=== PATIENT | female | born 1935 | race Caucasian/White ===

== ENCOUNTER 2016-10-30 16:35 | Emergency (ER) | payer MEDICARE, BC ==
[~2016-10-30 16:35] MED LIST: Iopamidol 612 MG/ML 75 ML Bottle IV ONE; Sodium Chloride 0.9% 50 ML SDV IV ONE
[2016-10-30 16:47] VITALS: BP 134/76
[2016-10-30 17:31] LABS: CHLORIDE,CL 97 mmol/L (98-115); SODIUM,NA 140 mmol/L (136-145)
[2016-10-30] MEDS ORDERED: Morphine 4 MG/ML Syringe IVPUSH ONE (18:24)
[2016-10-30] MEDS ORDERED: Sodium Chloride 0.9% 1,000 ML IV ONE (18:24)
[2016-10-30] MEDS ORDERED: Ondansetron 4 MG/2 ML SDV IVPUSH ONE (18:24)
--- NOTE | 2016-10-30 18:24 | EDM.PDOC ---
<Arnoldo Garcia Laura - Last Filed: 10/30/16 19:15> ED HPI GENERAL MEDICAL PROBLEM - General Chief Complaint: Lower Extremity Injury/Pain Time Seen by Provider: 10/30/16 17:23 Source of Information: Reports: Patient, Family (daughter) History Limitations: Reports: No Limitations - History of Present Illness INITIAL COMMENTS - FREE TEXT/NARRATIVE: Patient brought to ER by daughter with right lateral hip pain. 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 She was supposed to have her left knee replaced today but cancelled that due to the vomiting. At her pre-op physical two weeks ago she found to have a sinus infection and took a course of Z-pack but she doesn't think that cleared it up. She hasn't noticed a fever at home but it is 99.5 in ER now. She has a slight cough that she thinks is due to her sinus drainage rather than anything in her lungs. She denies dysuria. She does have right flank pain but she thinks that is her hip. For the last 5 days she has been administering Lovenox shots in her abdomen bridging for warfarin/A Fib with her planned knee replacement. She says she has a hematoma on her abdomen from the Lovenox shots. She also has known hypokalemia and normally takes potassium 30meq in AM and 20 in pm, however for the past 5 days she hasn't taken them or some of her other medication. She normally drinks about 6 cups of water daily but not as much the last couple days. Treatments DRAWER LINER: Reports: Acetaminophen Right Hip Pain Score (Numeric/FACES): 10 - Related Data Allergies Allergy/AdvReac Type Severity Reaction Status Date / Time cat dander Allergy Cannot Verified 10/30/16 16:58 Remember cephalexin [From Keflex] Allergy Stomach Verified 10/30/16 16:58 Upset furosemide [From Lasix] Allergy Dizziness Verified 02/02/16 17:48 Penicillins Allergy Cannot Verified 02/02/16 17:47 Remember propoxyphene HCl Allergy Rash Verified 10/30/16 16:58 [From Darvon] propoxyphene napsylate Allergy Rash Verified 10/30/16 16:58 [From Darvocet-N 100] acetaminophen AdvReac Mild Cannot Verified 02/02/16 17:47 [From Darvocet-N 100] Remember ENVIRONMENTAL Allergy Cannot Uncoded 05/09/15 12:23 Remember Home Meds: Home Meds Acetaminophen [Tylenol Extra Strength] 1,000 mg PO Q6H PRN 04/29/13 [History] Levothyroxine [Synthroid] 100 mcg PO ACBRK 04/29/13 [History] Multivitamin [Multi-Vitamin Daily] 1 each PO DAILY 04/29/13 [History] Preston-3 Fatty Acids [Preston-3] 1,000 mg PO BID 04/29/13 [History] amLODIPine [Norvasc] 10 mg PO DAILY 04/29/13 [History] Bumetanide [Bumex] 1 tab PO BID 06/17/14 [History] Sertraline [Zoloft] 100 mg PO DAILY 02/14/15 [History] Triamterene/Hydrochlorothiazid [Triamterene-HCTZ 37.5-25 MG] 1 each PO DAILY [History] Gluc 2KCl/Chondr/Lavelle Hy/Hy Ac [Glucosamine & Chondroitin Cap] 1 each PO DAILY 02/02/16 [History] Rosuvastatin Calcium [Crestor] 5 mg PO DAILY 02/02/16 [History] Albuterol [IJD: Albuterol HFA] 2 puff INH Q4H PRN 10/30/16 [History] Diltiazem HCl [Cardizem Cd] 1 cap PO DAILY 10/30/16 [History] Gluc 2KCl/Chondr/Lavelle Hy/Hy Ac [Glucosamine & Chondroitin Cap] 2 cap PO DAILY@ 1800 10/30/16 [History] Lutein/Minerals/Vit A,C & E [Ocuvite] 1 tab PO DAILY 10/30/16 [History] Potassium Chloride [Klor-Con M20] 40 meq PO DAILY@1800 10/30/16 [History] Potassium Chloride [Klor-Con M20] 60 meq PO DAILY 10/30/16 [History] Pregabalin [Lyrica] 100 mg PO TID 10/30/16 [History] Past Medical History Cardiovascular History: Reports: Arrhythmia, Blood Clots/VTE/DVT, Hypertension Musculoskeletal History: Reports: Arthritis Neurological History: Reports: Neuropathy, Peripheral - Past Surgical History Musculoskeletal Surgical History: Reports: Other (See Below) Other Musculoskeletal Surgeries/Procedures:: Left ankle surgery Social & Family History - Tobacco Use Smoking Status *Q: Never Smoker Used Tobacco, but Quit: No Second Hand Smoke Exposure: Yes - Caffeine Use Caffeine Use: Reports: Coffee, Soda, Tea - Alcohol Use Days Per Week of Alcohol Use: 0 - Recreational Drug Use Recreational Drug Use: No Review of Systems - Review of Systems Review Of Systems: See Below Constitutional: Denies: Chills, Diaphoresis, Fever Eyes: Denies: Blurred Vision Ears: Denies: Dizziness Nose: Reports: Other (post nasal drainage) Mouth/Throat: Denies: Hoarse Voice, Difficulty Swallowing Respiratory: Denies: Shortness of Breath, Wheezing Cardiovascular: Reports: Edema (chronic but worse than usual since she hasn't been taking her furosemide for a few days). Denies: Chest Pain, Syncope GI/Abdominal: Reports: Nausea, Vomiting Genitourinary: Reports: Incontinence. Denies: Dysuria Musculoskeletal: Reports: Leg Pain (see HPI). Denies: Neck Pain, Shoulder Pain Skin: Reports: Bruising, Erythema. Denies: Cyanosis, Jaundice, Mottled, Pallor , Diaphoresis Neurological: Denies: Confusion, Dizziness, Headache, Seizure, Syncope, Trouble Speaking Psychiatric: Denies: Confusion ED EXAM, GENERAL - Physical Exam Exam: See Below Exam Limited By: No Limitations General Appearance: Alert, WD/WN, No Apparent Distress Eye Exam: Bilateral Eye: EOMI, Normal Inspection, PERRL Ears: Normal External Exam, Hearing Grossly Normal Nose: Normal Inspection, No Blood Throat/Mouth: Normal Lips, Normal Voice, No Airway Compromise Head: Atraumatic, Normocephalic Respiratory/Chest: No Respiratory Distress, Lungs Clear, Normal Breath Sounds, No Accessory Muscle Use Cardiovascular: No Murmur, Irregularly Irregular GI/Abdominal: Tender (there is a large area of ecchymosis, swelling, warmth and induration of left lower abdomen/pannus. This is tender to palpation also. Also tender in RUQ and flank.) Back Exam: CVA Tenderness (R). No: CVA Tenderness (L) Extremities: Pedal Edema (4+ bilat) Neurological: Alert, Oriented, Normal Cognition, No Motor/Sensory Deficits Psychiatric: Normal Affect, Normal Mood Skin Exam: Warm, Dry, Intact, Ecchymosis (large on abdomen and also on bilat arms), Increased Warmth (abdomen) Course - Vital Signs Last Recorded V/S: Last Vital Signs Temp 37.5 C 10/30/16 16:44 Pulse 87 10/30/16 16:44 Resp 16 10/30/16 16:44 BP 134/76 10/30/16 16:44 Pulse Ox 97 10/30/16 16:44 - Orders/Labs/Meds Orders: Active Orders 24 hr Category Date Time Status Abdomen Pelvis w Cont [CT] Stat Exams 10/30/16 18:48 Ordered Chest 2V [CR] Stat Exams 10/30/16 16:54 Taken Hip Min 2V or 3V w Pelvis Rt [CR] Stat Exams 10/30/16 16:54 Taken CULTURE BLOOD [BC] Stat Lab 10/30/16 18:10 Received CULTURE BLOOD [BC] Stat Lab 10/30/16 18:35 Received CULTURE URINE [RM] Stat Lab 10/30/16 18:00 Received Levofloxacin/Dextrose 5%-Water [Levaquin in D5W 250 MG/ Med 10/30/16 19:09 Active 50 ML] 250 mg Premix Bag 1 bag IV ONETIME Levofloxacin/Dextrose 5%-Water [Levaquin in D5W 500 MG/ Med 10/30/16 19:10 Active 100 ML] 500 mg Premix Bag 1 bag IV ONETIME Potassium Bicarb/Potassium Chl [Potassium Chloride, Med 10/30/16 19:15 Active Effervescent] 50 meq PO DAILY Vancomycin 1 gm Med 10/30/16 19:09 Active Sodium Chloride 0.9% [Normal Saline] 250 ml IV ONETIME Blood Culture x2 Reflex Set [OM.PC] Stat Oth 10/30/16 17:47 Ordered Medication Orders Levofloxacin/Dextrose 250 mg/ (Premix) 50 mls @ 50 mls/hr IV ONETIME ONE Stop: 10/30/16 20:08 Levofloxacin/Dextrose 500 mg/ (Premix) 100 mls @ 100 mls/hr IV ONETIME ONE Stop: 10/30/16 20:09 Last Admin: 10/30/16 19:54 Dose: 100 mls/hr Vancomycin HCl 1 gm/ Sodium (Chloride) 250 mls @ 167 mls/hr IV ONETIME ONE Stop: 10/30/16 20:38 Potassium Bicarb/Potassium Chloride (Potassium Chloride, Effervescent) 50 meq PO DAILY FAROOQ Last Admin: 10/30/16 19:53 Dose: 50 meq Labs: Laboratory Tests 10/30/16 10/30/16 10/30/16 Range/Units 17:00 17:00 17:00 WBC 19.2 H (5.0-10.0) 10^3/uL RBC 4.05 (3.80-5.50) 10^6/uL Hgb 12.6 (12.0-16.0) g/dL Hct 36.9 L (37.0-47.0) % MCV 91.1 (82.0-92.0) fL MCH 31.2 H (27.0-31.0) pg MCHC 34.2 (32.0-36.0) g/dL RDW 12.9 (11.5-14.5) % Plt Count 274 (150-300) 10^3/uL MPV 7.0 L (7.4-10.4) fL Neut % (Auto) 77.0 H (50.0-70.0) % Lymph % (Auto) 10.1 L (20.0-40.0) % [place] % (Auto) 12.6 H (2.0-8.0) % Eos % (Auto) 0.1 L (1.0-3.0) % Baso % (Auto) 0.2 (0.0-1.0) % Neut # (Auto) 14.9 H (2.5-7.0) 10^3/uL Lymph # (Auto) 1.9 (1.0-4.0) 10^3/uL [place] # (Auto) 2.4 H (0.1-0.8) 10^3/uL Eos # (Auto) 0.0 L (0.1-0.3) 10^3/uL Baso # (Auto) 0.0 (0.0-0.1) 10^3/uL PT (8.9-11.4) SEC INR (0.9-1.1) APTT (20.8-31.2) SEC Sodium 140 (136-145) mmol/L Potassium 2.6 L (3.3-5.3) mmol/L Chloride 97 L (98-115) mmol/L Carbon Dioxide 31.0 (21.0-32.0) mmol/L BUN 13 (6-25) mg/dL Creatinine 0.59 (0.51-1.17) mg/dL Est Cr Clr Drug Dosing 55.47 mL/min Estimated GFR (MDRD) > 60 mL/min Glucose 138 H (70-110) mg/dL Lactic Acid (0.4-2.0) mmol/L Calcium 9.5 (8.7-10.3) mg/dL C-Reactive Protein 21.3 H (0.0-0.9) mg/dL Specimen Type Urine Color (YELLOW) Urine Appearance (CLEAR) Urine pH (5.0-9.0) Ur Specific [place] (1.005-1.030) Urine Protein (NEGATIVE) mg/dL Urine Glucose (UA) (NEGATIVE) mg/dL Urine Ketones (NEGATIVE) mg/dL Urine Occult Blood (NEGATIVE) Urine Nitrite (NEGATIVE) Urine Bilirubin (NEGATIVE) Urine Urobilinogen (0.2-1.0) E.U./dL Ur Leukocyte Esterase (NEGATIVE) Urine RBC /HPF Urine WBC /HPF Ur Epithelial Cells /LPF Urine Bacteria (NONE TO FEW) /HPF 10/30/16 10/30/16 10/30/16 Range/Units 17:00 17:00 18:00 WBC (5.0-10.0) 10^3/uL RBC (3.80-5.50) 10^6/uL Hgb (12.0-16.0) g/dL Hct (37.0-47.0) % MCV (82.0-92.0) fL MCH (27.0-31.0) pg MCHC (32.0-36.0) g/dL RDW (11.5-14.5) % Plt Count (150-300) 10^3/uL MPV (7.4-10.4) fL Neut % (Auto) (50.0-70.0) % Lymph % (Auto) (20.0-40.0) % [place] % (Auto) (2.0-8.0) % Eos % (Auto) (1.0-3.0) % Baso % (Auto) (0.0-1.0) % Neut # (Auto) (2.5-7.0) 10^3/uL Lymph # (Auto) (1.0-4.0) 10^3/uL [place] # (Auto) (0.1-0.8) 10^3/uL Eos # (Auto) (0.1-0.3) 10^3/uL Baso # (Auto) (0.0-0.1) 10^3/uL PT 11.3 (8.9-11.4) SEC INR 1.1 (0.9-1.1) APTT 26.6 (20.8-31.2) SEC Sodium (136-145) mmol/L Potassium (3.3-5.3) mmol/L Chloride (98-115) mmol/L Carbon Dioxide (21.0-32.0) mmol/L BUN (6-25) mg/dL Creatinine (0.51-1.17) mg/dL Est Cr Clr Drug Dosing mL/min Estimated GFR (MDRD) mL/min Glucose (70-110) mg/dL Lactic Acid (0.4-2.0) mmol/L Calcium (8.7-10.3) mg/dL C-Reactive Protein (0.0-0.9) mg/dL Specimen Type Urinvoid Urine Color Yellow (YELLOW) Urine Appearance Clear (CLEAR) Urine pH 6.5 (5.0-9.0) Ur Specific [place] 1.015 (1.005-1.030) Urine Protein Negative (NEGATIVE) mg/dL Urine Glucose (UA) Negative (NEGATIVE) mg/dL Urine Ketones Negative (NEGATIVE) mg/dL Urine Occult Blood Negative (NEGATIVE) Urine Nitrite Negative (NEGATIVE) Urine Bilirubin Negative (NEGATIVE) Urine Urobilinogen 0.2 (0.2-1.0) E.U./dL Ur Leukocyte Esterase Negative (NEGATIVE) Urine RBC 0-5 /HPF Urine WBC 0-5 /HPF Ur Epithelial Cells Moderate H /LPF Urine Bacteria Moderate H (NONE TO FEW) /HPF 10/30/16 Range/Units 18:10 WBC (5.0-10.0) 10^3/uL RBC (3.80-5.50) 10^6/uL Hgb (12.0-16.0) g/dL Hct (37.0-47.0) % MCV (82.0-92.0) fL MCH (27.0-31.0) pg MCHC (32.0-36.0) g/dL RDW (11.5-14.5) % Plt Count (150-300) 10^3/uL MPV (7.4-10.4) fL Neut % (Auto) (50.0-70.0) % Lymph % (Auto) (20.0-40.0) % [place] % (Auto) (2.0-8.0) % Eos % (Auto) (1.0-3.0) % Baso % (Auto) (0.0-1.0) % Neut # (Auto) (2.5-7.0) 10^3/uL Lymph # (Auto) (1.0-4.0) 10^3/uL [place] # (Auto) (0.1-0.8) 10^3/uL Eos # (Auto) (0.1-0.3) 10^3/uL Baso # (Auto) (0.0-0.1) 10^3/uL PT (8.9-11.4) SEC INR (0.9-1.1) APTT (20.8-31.2) SEC Sodium (136-145) mmol/L Potassium (3.3-5.3) mmol/L Chloride (98-115) mmol/L Carbon Dioxide (21.0-32.0) mmol/L BUN (6-25) mg/dL Creatinine (0.51-1.17) mg/dL Est Cr Clr Drug Dosing mL/min Estimated GFR (MDRD) mL/min Glucose (70-110) mg/dL Lactic Acid 2.6 H (0.4-2.0) mmol/L Calcium (8.7-10.3) mg/dL C-Reactive Protein (0.0-0.9) mg/dL Specimen Type Urine Color (YELLOW) Urine Appearance (CLEAR) Urine pH (5.0-9.0) Ur Specific [place] (1.005-1.030) Urine Protein (NEGATIVE) mg/dL Urine Glucose (UA) (NEGATIVE) mg/dL Urine Ketones (NEGATIVE) mg/dL Urine Occult Blood (NEGATIVE) Urine Nitrite (NEGATIVE) Urine Bilirubin (NEGATIVE) Urine Urobilinogen (0.2-1.0) E.U./dL Ur Leukocyte Esterase (NEGATIVE) Urine RBC /HPF Urine WBC /HPF Ur Epithelial Cells /LPF Urine Bacteria (NONE TO FEW) /HPF Meds: Medications Generic Name Dose Route Start Last Admin Trade Name Freq PRN Reason Stop Dose Admin Levofloxacin/Dextrose 250 mg/ 50 mls @ 50 mls/hr 10/30/16 19:09 Premix IV 10/30/16 20:08 ONETIME ONE Levofloxacin/Dextrose 500 mg/ 100 mls @ 100 mls/hr 10/30/16 19:10 10/30/16 19 :54 Premix IV 10/30/16 20:09 100 mls/hr ONETIME ONE Administration Vancomycin HCl 1 gm/ Sodium 250 mls @ 167 mls/hr 10/30/16 19:09 Chloride IV 10/30/16 20:38 ONETIME ONE Potassium Bicarb/Potassium Chloride 50 meq 10/30/16 19:15 10/30/16 19:53 Potassium Chloride, Effervescent PO 50 meq DAILY FAROOQ Administration Discontinued Medications Generic Name Dose Route Start Last Admin Trade Name Freq PRN Reason Stop Dose Admin Sodium Chloride 1,000 mls @ 999 mls/hr 10/30/16 18:24 10/30/16 18:52 Normal Saline IV 10/30/16 19:24 999 mls/hr .BOLUS ONE Administration Morphine Sulfate 4 mg 10/30/16 18:24 10/30/16 18:55 Morphine IVPUSH 10/30/16 18:25 4 mg ONETIME ONE Administration Ondansetron HCl 4 mg 10/30/16 18:24 10/30/16 18:52 Zofran IVPUSH 10/30/16 18:25 4 mg ONETIME ONE Administration - Re-Assessments/Exams Free Text/Narrative Re-Assessment/Exam: 10/30/16 19:03 WBC, CRP, lactic acid all elevated. Xrays of chest, pelvis and hip all okay, confirmed by radiologist. Discussed findings with patient and her daughter. Started IV fluids and zofran, tavo blood cultures, ordered CT and will start antibiotics. Discussed with William who will be taking over care of this patient. Discussed preliminarily that she will likely be transferred to [facility] which is okay with her and her daughter. Departure - Departure Disposition: DC/Tfer to [facility] 02 Clinical Impression: Hypokalemia, Neutrophilic leukocytosis, Abdominal wall abscess - Discharge Information Referrals: PCP,Not In Area [Primary Care Provider] - Forms: ED Department Discharge, Interfacility Transfer RAMAKRISHNA <William Miles - Last Filed: 10/30/16 20:19> Course - Radiology Interpretation Free Text/Narrative:: CT abd/pelvis- 10x7.6x7.0 abdominal wall mass- hematoma vs abscess Departure - Departure Time of Disposition: 20:17 - Assessment/Plan Assessment:: 1. abdominal wall mass 2. leukocytosis 3. hypokalemia 4. elevated lactic acid Plan: 1. transfer to [facility] for further evaluation and treatment 2. supportive care
[2016-10-30] MEDS ORDERED: Levofloxacin/Dextrose 5%-Water 250 MG in Premix Bag 1 BAG IV ONE (19:09)
[2016-10-30] MEDS ORDERED: Levofloxacin/Dextrose 5%-Water 500 MG in Premix Bag 1 BAG IV ONE (19:10)
[2016-10-30] MEDS ORDERED: Potassium Bicarbonate/Potassium Chloride 25 MEQ Tab.Eff PO SCH (19:15)
[2016-10-30] MEDS ORDERED: Acetaminophen 325 MG Tab ONE (20:52)
[2016-10-30] MEDS ORDERED: Acetaminophen 325 MG Tab PO ONE (21:00)
[2016-10-31] MEDS ORDERED: Iopamidol 612 MG/ML 75 ML Bottle IV ONE (08:05)
[2016-10-31] MEDS ORDERED: Sodium Chloride 0.9% 50 ML SDV FLUSH SCH (08:15)
== END 2016-10-30 21:00 ==
LOC: KA.ED 16:35
DX: L02.211 Cutaneous abscess of abdominal wall (principal); E87.6 Hypokalemia; D72.828 Other elevated white blood cell count; I10 Essential (primary) hypertension; M19.90 Unspecified osteoarthritis, unspecified site; Z88.8 Allergy status to other drugs, medicaments and biological substances; Z88.0 Allergy status to penicillin; Z91.048 Other nonmedicinal substance allergy status; Z79.899 Other long term (current) drug therapy; Z91.09 Other allergy status, other than to drugs and biological substances
CPT/HCPCS: 36415; 71020; 73502; 74177; 80048; 81001; 83605; 85025; 85610; 85730; 86140; 87040; 87086; 96361; 96365; 96375; 99285; A9270; J1956; J2270; J2405; J7030; Q9967

== ENCOUNTER 2016-11-19 14:55 | Inpatient (IN) | payer MEDICARE, BC ==
[2016-11-19] MEDS ORDERED: Albuterol HFA 18 Gm Inhaler INH PRN (17:49)
[2016-11-19] MEDS ORDERED: Albuterol/Ipratropium 3.0-0.5 MG/3 ML Neb Soln NEB PRN (17:49)
[2016-11-19] MEDS ORDERED: 50% Dextrose in Water 50 ML Syringe IVPUSH PRN (17:49)
[2016-11-19] MEDS ORDERED: Non-Formulary Medication 1 Each (Gluc 2kcl/Chondr/Coll Hy/Hy Ac [Glucosamine & Chondroitin PO SCH (18:00)
[2016-11-19] MEDS ORDERED: Warfarin 5 MG Tab PO ONE (18:00)
[2016-11-19] MEDS: Potassium Chloride 20 MEQ Tab.ER PO SCH (19:21)
[2016-11-19] MEDS: Bumetanide 1 MG Tab PO SCH (19:34)
[2016-11-19] MEDS: Carvedilol 6.25 MG Tab PO SCH (19:34)
[2016-11-19] MEDS: Chondroitin/Glucosamine Cap PO SCH (19:35)
[2016-11-19] MEDS: Hydrocortisone 2.5% Crm 30 GM Tube TOP SCH (20:52)
[2016-11-19] MEDS: Nystatin Topical Powder 15 GM Bottle TOP SCH (20:53)
[2016-11-19] MEDS: Pregabalin 25 MG Cap PO SCH (20:54)
[2016-11-19] MEDS: Multivitamins with Minerals/Iron/Folic Acid/Lycopene Tab PO SCH (20:54)
[2016-11-19] MEDS: Rosuvastatin 10 MG Tab PO SCH (20:54)
[2016-11-19] MEDS: Fish Oil/Omega-3 Fatty Acids 1 Gm Cap PO SCH (20:54)
[2016-11-19] MEDS ORDERED: atorvaSTATin 40 MG Tab PO SCH (21:00)
[2016-11-20] MEDS: Levothyroxine 100 MCG Tab PO SCH (07:02)
[2016-11-20 07:39] LABS: CHLORIDE,CL 102 mmol/L (98-115); SODIUM,NA 141 mmol/L (136-145)
[2016-11-20] MEDS ORDERED: Non-Formulary Medication 1 Each (Amlodipine [Norvasc] 10 MG) PO SCH (09:00)
[2016-11-20] MEDS ORDERED: Hydrochlorothiazide/Triamterene 25-37.5 Tab PO SCH (09:00)
[2016-11-20] MEDS: Aspirin 81 MG Tab.EC PO SCH (09:08)
[2016-11-20] MEDS: Chondroitin/Glucosamine Cap PO SCH (09:09)
[2016-11-20] MEDS: Loratadine 10 MG Tab PO SCH (09:09)
[2016-11-20] MEDS: Lutein/Minerals/Vitamins A, C & E Tab PO SCH (09:09)
[2016-11-20] MEDS: Fish Oil/Omega-3 Fatty Acids 1 Gm Cap PO SCH ×2 (09:09→21:35)
[2016-11-20] MEDS: Pregabalin 25 MG Cap PO SCH ×3 (09:09→21:35)
[2016-11-20] MEDS: Clopidogrel 75 MG Tab PO SCH (09:10)
[2016-11-20] MEDS: Sertraline 50 MG Tab PO SCH (09:10)
[2016-11-20] MEDS: Bumetanide 1 MG Tab PO SCH ×2 (09:22→17:18)
[2016-11-20] MEDS: Lisinopril 5 MG Tab PO SCH (09:22)
[2016-11-20] MEDS: Diltiazem 120 MG Cap.CD PO SCH (09:28)
[2016-11-20] MEDS: Carvedilol 6.25 MG Tab PO SCH ×2 (09:49→17:19)
[2016-11-20] MEDS: Nystatin Topical Powder 15 GM Bottle TOP SCH ×3 (09:55→21:35)
[2016-11-20] MEDS ORDERED: Lidocaine 2% 100 MG/5 ML Syringe IVPUSH PRN (09:56)
[2016-11-20] MEDS ORDERED: Atropine 0.1 MG/ML 10 ML Syringe IVPUSH PRN (09:56)
[2016-11-20] MEDS ORDERED: EPINEPHrine 1:10,000 1 MG/10 ML Syringe IVPUSH PRN (09:56)
[2016-11-20] MEDS ORDERED: Nitroglycerin 0.4 MG Tab.SL SL PRN (09:56)
[2016-11-20] MEDS: Hydrocortisone 2.5% Crm 30 GM Tube TOP SCH ×2 (09:56→21:35)
[2016-11-20] MEDS: Acetaminophen 325 MG Tab PO PRN (10:09)
[2016-11-20] MEDS: Potassium Chloride 20 MEQ Tab.ER PO SCH ×2 (10:09→17:19)
[2016-11-20] MEDS: Warfarin 5 MG Tab PO SCH (17:19)
[2016-11-20] MEDS: Rosuvastatin 10 MG Tab PO SCH (21:34)
[2016-11-20] MEDS: Multivitamins with Minerals/Iron/Folic Acid/Lycopene Tab PO SCH (21:34)
[2016-11-21] MEDS: Levothyroxine 100 MCG Tab PO SCH (06:08)
--- NOTE | 2016-11-21 07:41 | HP ---
This is for swing bed admission. This is an 80-year-old female formally from [place], [place], currently residing in [place]. CHIEF COMPLAINT: Deconditioning and weakness due to extended hospitalization. HISTORY OF PRESENT ILLNESS: This is an 80-year-old, pleasant female who is being admitted to [facility] Swing Bed for weakness and deconditioning following an extended illness. The history is obtained from hospital records from [facility] in [place] as well as from the patient and her daughter, who is present during the interview today. The patient was scheduled for a knee surgery on 10/30/2016. She has a past medical history of atrial fibrillation and it was being bridged for four days with Lovenox. She was seen in the emergency room at [facility] for a hematoma on the left side of her abdomen. She was seen in the emergency room, she reported just not feeling well. When she was seen in the emergency room apparently decompensated from a respiratory standpoint, was intubated and sent to [place]. She was cared for in the intensive care unit and left on the ventilator for approximately 72 hours. She was extubated without complication. She was found to be anemic and did receive a total of 3 units of packed RBCs during her hospitalization. She underwent a cardiac catheterization on 11/09/2016, which showed severe proximal left anterior descending artery stenosis and moderate ostial RCA stenosis. She had a stent of the proximal LAD performed that day. I should add that the reason for the intubation was acute on chronic congestive heart failure secondary to chronic atrial fibrillation. Her most recent echocardiogram was on 11/12/2016, which showed a left ventricular ejection fraction of 45 to 50%, with a normal left ventricle size. There was mild global hypokinesis of the left ventricle. Right ventricle showed normal right ventricular systolic function with right ventricular enlargement. Left atrium and right atrium, both quantitatively enlarged. Aortic valve was moderately sclerotic with no insufficiency. Mitral valve had showed moderate mitral valve annular calcifications with moderate mitral regurgitation. Tricuspid valve did not visualize well, but was found to have moderate tricuspid regurgitation. Pulmonic valve was not well visualized, but grossly normal with possibly a trace or physiologic pulmonic regurgitation. There was no pericardial effusion. She is being admitted to the swing bed for deconditioning and weakness following this extended illness and will receive physical therapy and have cardiac rehab after discharge. Summary of working problems while hospitalized at [facility] included acute hypoxic respiratory failure, which was resolved; newly diagnosed cardiomyopathy with acute systolic and diastolic CHF exacerbation, euvolemic on Bumex. She is on aspirin and Plavix per Cardiology; left anterior abdominal wall hematoma with mild improvement with a high risk of rebleed as she is on triple anticoagulation with aspirin, Plavix, and Coumadin; right retroperitoneal hematoma. CAT scan shows resolution from 13 cm to 4 cm; acute on chronic blood loss anemia stable after 3 units of packed RBCs; severe left knee osteoarthritis with previous plan for total knee arthroplasty, this will be postponed to outpatient management and intervention once she has improved. PAST MEDICAL HISTORY: 1. She has a history of hypothyroidism for which she is taking thyroid replacement. 2. She has a history of atrial fibrillation for which she is on long-term anticoagulation therapy. 3. She has a history of coronary artery disease with recent coronary artery stenting and is on Plavix and aspirin, in addition to the Coumadin, she is taking for atrial fibrillation. 4. She has a history of hypertension for which she is taking diltiazem as well as lisinopril. She is also taking Coreg. 5. She has a history of hypercholesterolemia for which she is taking rosuvastatin. 6. She has a history of peripheral neuropathy, not diabetic related and is taking pregabalin. 7. She has hypokalemia for which she is taking potassium chloride. 8. She has a history of congestive heart failure for which she is taking a potassium supplement. 9. She has a history of depression for which she is taking sertraline. PAST SURGICAL HISTORY: Includes a left ankle fracture with open reduction and internal fixation in 1995, tubal ligation, hysterectomy with BSO, right carpal tunnel decompression, cardiac stenting recently. According to her daughter, she was scheduled for cardiac ablation, however, was found to have a thrombus in her heart. MEDICATIONS: See above. She does have p.r.n. DuoNeb treatments for shortness of breath and wheezing. ALLERGIES: PCN; propoxyphene; cat dander; cephalexin. She has a history of seasonal allergies for which she is taking loratadine. FAMILY HISTORY: Her mom at age 56 of ovarian cancer. Her dad at age 61 of a CVA. Her brother has hypertension and her sister as an infant of whooping cough. SOCIAL HISTORY: Her on 07/27/2016. Since around [place], she was living independently in [place], [place]. She has since moved to a town home in [facility]. She has five living children, four of which live in the immediate area and a daughter that lives in [place]. Her main care provider in her family is Denia Mckeon. REVIEW OF SYSTEMS: GENERAL: The patient denies any fever, she has had some weight loss during the hospitalization. HEENT: She complains of a mild headache due to sinus pressure. She denies any visual changes. She did have some dysphagia and some swallowing difficulty in the intensive care unit requiring feeding tubes, however, this has resolved with the most recent swallow study being normal allowing for mechanical soft heart healthy diet 2 g sodium. CARDIAC: She denies any chest pain. She reports some palpitations when she is resting at night. She feels that her heart is flipping, this may be secondary to her AFib. RESPIRATORY: She does feel short of breath. No dyspnea and no orthopnea. She does have a cough with production of just clear sputum. ABDOMEN: No abdominal pain. No nausea, vomiting. She does have occasional diarrhea recently. No constipation. GENITOURINARY: No urinary complaints. No dysuria, hematuria, or urinary frequency. MUSCULOSKELETAL: She does have chronic left knee pain with severe osteoarthritis, requiring arthroplasty as soon as she is discharged from the hospital and recovered. ENDOCRINE: She denies any heat or cold intolerance. No polydipsia, polyuria, or polyphagia. NEUROLOGIC: She does have peripheral neuropathy not related to diabetes mellitus and is taking Lyrica. She denies any syncope or dizziness. PHYSICAL EXAMINATION: VITAL SIGNS: Her temp is 97.9, pulse is 58, respirations 18, blood pressure 108/58, O2 saturation is 96%, this is on room air. SKIN: Pale, somewhat dusky, warm, dry to touch. HEENT: Normocephalic. Faces are symmetrical. External ear canals are clear. Tympanic membranes are pearly bowie. Eyes, PERRLA. Extraocular movements are intact. Visual cabrera are full. Nasal mucosa is pink and moist. There is no erythema or exudate in the posterior pharynx. NECK: Supple. There is no cervical lymphadenopathy. No jugular vein distention. No carotid bruits. CARDIAC: Reveals S1, S2 to be normal. Rate and rhythm are irregularly irregular. There is a 3/6 systolic murmur. LUNGS: Clear. There are no rales, wheezes, or rhonchi auscultated. ABDOMEN: Soft. She does have hematoma on the left side of the abdomen, which is marked, appears to be resolving. Bowel sounds are present in all four quadrants. There is mild pedal edema, non-pitting. NEUROLOGICAL: She is alert and oriented to time, place, person, and self and is a good historian. Cranial nerves 2 through 12 are intact. Sensory motor and cerebellar function are deferred at this time. IMPRESSION: 1. Weakness and deconditioning following an extended hospital stay including a significant intensive care stay, she will be set up for physical therapy and later for cardiac rehab. 2. Acute hypoxic respiratory failure. This has resolved and improving significantly. This was most likely secondary to acute on chronic diastolic congestive heart failure exacerbation which seems to be stable on Bumex. 3. Acute on chronic diastolic dysfunction. 4. Left anterior abdominal wall hematoma that appears to be improving apparently. 5. There is a right retroperitoneal hematoma, which also appears to be improving. 6. Cardiomyopathy and history of atrial fibrillation. Continue triple anticoagulation. 7. Anemia. We will assess CBC, CMP, as well as a BMP and INR in the morning. 8. Severe left knee osteoarthritis. Plan for outpatient total knee arthroplasty. 9. Moderate mitral regurgitation found on echocardiogram, appears to be stable. 10.Hypothyroidism, on thyroid replacement. 11.Hypertension, continue antihypertensive regimen. 12.Coronary artery disease, status post stenting, stable, without chest pain. 13.Peripheral neuropathy not related to diabetes, continue Lyrica. If you have any questions, let me know. /[id number]/MODL MTDD
[2016-11-21 07:42] LABS: CHLORIDE,CL 105 mmol/L (98-115); SODIUM,NA 140 mmol/L (136-145)
[2016-11-21] MEDS: Loratadine 10 MG Tab PO SCH (08:35)
[2016-11-21] MEDS: Potassium Chloride 20 MEQ Tab.ER PO SCH ×2 (08:35→17:58)
[2016-11-21] MEDS: Aspirin 81 MG Tab.EC PO SCH (08:35)
[2016-11-21] MEDS: Bumetanide 1 MG Tab PO SCH ×2 (08:36→17:56)
[2016-11-21] MEDS: Clopidogrel 75 MG Tab PO SCH (08:36)
[2016-11-21] MEDS: Lutein/Minerals/Vitamins A, C & E Tab PO SCH (08:36)
[2016-11-21] MEDS: Sertraline 50 MG Tab PO SCH (08:36)
[2016-11-21] MEDS: Fish Oil/Omega-3 Fatty Acids 1 Gm Cap PO SCH ×2 (08:37→21:21)
[2016-11-21] MEDS: Chondroitin/Glucosamine Cap PO SCH (08:37)
[2016-11-21] MEDS: Pregabalin 25 MG Cap PO SCH ×3 (08:37→21:22)
[2016-11-21] MEDS: Carvedilol 6.25 MG Tab PO SCH ×2 (08:41→17:57)
[2016-11-21] MEDS: Lisinopril 5 MG Tab PO SCH (08:41)
[2016-11-21] MEDS: Hydrocortisone 2.5% Crm 30 GM Tube TOP SCH ×2 (08:42→21:20)
[2016-11-21] MEDS: Nystatin Topical Powder 15 GM Bottle TOP SCH ×3 (08:43→21:21)
[2016-11-21] MEDS: Diltiazem 120 MG Cap.CD PO SCH (08:43)
--- NOTE | 2016-11-21 09:00 | PCM.PN ---
- General Info Date of Service: 11/21/16 Admission Dx/Problem (Free Text): Deconditioning - Review of Systems Systems Review Comment:: Kotrney is seen today on swingbed rounds. She was admitted 11/19/16 due to deconditioning after a hospital stay for acute CHF exacerbation requiring intubation in the setting of having initially been evaluated for a abdominal wall hematoma. She states that she was not taking her medications as prescribed as her had a few months prior and she admits she was depressed but she no longer feels depressed. She previously lived in [place], [place] and recently moved to [place] to be closer to her family. She was supposed to have a knee replacement done but with her hospitalization and respiratory distress that was put on hold. She was actually on the enoxaparin as a bridge with her warfarin in anticipation of the knee replacement. 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 She also states that she had a cardiac stent placed. She reports she is feeling well. She is asking when she can go home. Nursing notes her BP and pulse have been low. She is on cardizem, coreg and prinivil. - Patient Data Vitals - most recent: Last Vital Signs Temp 96.7 F 11/21/16 06:23 Pulse 55 L 11/21/16 08:41 Resp 20 11/21/16 06:23 BP 117/55 L 11/21/16 08:41 Pulse Ox 93 L 11/21/16 06:55 Weight - most recent: 174 lb 3 oz I&O - last 24 hours: Intake & Output 11/20/16 11/21/16 11/21/16 22:59 06:59 14:59 Intake Total 1100 350 Output Total 1100 750 Balance 0 -400 Lab Results last 24 hrs: Laboratory Results - last 24 hr 11/20/16 11/21/16 11/21/16 Range/Units 07:05 07:10 07:10 PT 23.5 H (8.9-11.4) SEC INR 2.2 H (0.9-1.1) Sodium 140 (136-145) mmol/L Potassium 4.2 (3.3-5.3) mmol/L Chloride 105 (98-115) mmol/L Carbon Dioxide 32.7 H (21.0-32.0) mmol/L BUN 11 (6-25) mg/dL Creatinine 0.54 (0.51-1.17) mg/dL Est Cr Clr Drug Dosing 63.53 mL/min Estimated GFR (MDRD) > 60 mL/min Glucose 89 (70-110) mg/dL Calcium 8.9 (8.7-10.3) mg/dL B-Natriuretic Peptide 301 H (0-100) pg/mL Med Orders - Current: Current Medications Acetaminophen (Tylenol) 650 mg PO Q6H PRN PRN Reason: Pain Last Admin: 11/20/16 10:09 Dose: 650 mg Albuterol (Ventolin Hfa) 0 gm INH Q4H PRN PRN Reason: Shortness of Breath Albuterol/Ipratropium (Duoneb 3.0-0.5 Mg/3 Ml) 3 ml NEB Q4HRRT PRN PRN Reason: Shortness of Breath Aspirin (Halfprin) 81 mg PO BRK [facility] Last Admin: 11/21/16 08:35 Dose: 81 mg Atropine Sulfate (Atropine 0.1 Mg/Ml) 0 mg IVPUSH ASDIRECTED PRN PRN Reason: Heart Bumetanide (Bumex) 1 mg PO BIDDIURETIC [facility] Last Admin: 11/21/16 08:36 Dose: 1 mg Carvedilol (Coreg) 3.125 mg PO BIDMEALS [facility] Last Admin: 11/21/16 08:41 Dose: 3.125 mg Clopidogrel Bisulfate (Plavix) 75 mg PO DAILY [facility] Last Admin: 11/21/16 08:36 Dose: 75 mg Epinephrine HCl (Epinephrine 1:10,000) 1 mg IVPUSH ASDIRECTED PRN PRN Reason: Heart Fish Oil (Fish Oil) 1 gm PO BID [facility] Last Admin: 11/21/16 08:37 Dose: 1 gm Glucosamine/Chondroitin (Glucosamine-Chondroitin 500-400 Capsule) 2 cap PO DAILY [facility] Last Admin: 11/21/16 08:37 Dose: 2 cap Hydrocortisone (Proctozone-Hc 2.5% Crm) 0 gm TOP BID [facility] Last Admin: 11/21/16 08:42 Dose: 1 applic Levothyroxine Sodium (Synthroid) 100 mcg PO ACBRK [facility] Last Admin: 11/21/16 06:08 Dose: 100 mcg Lidocaine HCl (Xylocaine 2%) 0 mg IVPUSH ASDIRECTED PRN PRN Reason: Heart Lisinopril (Prinivil) 2.5 mg PO DAILY [facility] Last Admin: 11/21/16 08:41 Dose: 2.5 mg Loratadine (Claritin) 10 mg PO DAILY [facility] Last Admin: 11/21/16 08:35 Dose: 10 mg Multivitamins/Minerals (Centrum) 1 tab PO BEDTIME [facility] Last Admin: 11/20/16 21:34 Dose: 1 tab Multivitamins/Minerals (Ocuvite) 1 each PO DAILY [facility] Last Admin: 11/21/16 08:36 Dose: 1 each Nitroglycerin (Nitrostat) 0.4 mg SL ASDIRECTED PRN PRN Reason: Heart Warfarin Pharmacy To (Dose) 1 dose .XX ASDIRECTED [facility] Nystatin (Nystop) 0 gm TOP TID [facility] Last Admin: 11/21/16 08:43 Dose: 1 applic Potassium Chloride (Klor-Con M20) 40 meq PO DAILY@1800 [facility] Last Admin: 11/20/16 17:19 Dose: 40 meq Potassium Chloride (Klor-Con M20) 60 meq PO DAILY [facility] Last Admin: 11/21/16 08:35 Dose: 60 meq Pregabalin (Lyrica) 100 mg PO TID [facility] Last Admin: 11/21/16 08:37 Dose: 100 mg Rosuvastatin Calcium (Crestor) 5 mg PO BEDTIME [facility] Last Admin: 11/20/16 21:34 Dose: 5 mg Senna/Docusate Sodium (Senna Plus) 1 tab PO DAILY PRN PRN Reason: Constipation Sertraline HCl (Zoloft) 100 mg PO DAILY [facility] Last Admin: 11/21/16 08:36 Dose: 100 mg Warfarin Sodium (Coumadin) 5 mg PO DAILY@1800 [facility] Last Admin: 11/20/16 17:19 Dose: 5 mg Warfarin Sodium (Coumadin) 2.5 mg PO Mo@1800 [facility] Discontinued Medications Diltiazem HCl (Cardizem Cd) 120 mg PO DAILY [facility] Last Admin: 11/21/16 08:43 Dose: Not Given Warfarin Sodium (Coumadin) 5 mg PO ONETIME ONE Stop: 11/19/16 18:01 Last Admin: 11/19/16 19:35 Dose: 5 mg - Exam General: alert, oriented, cooperative, no acute distress Lungs: Clear to auscultation, Normal respiratory effort Cardiovascular: No Murmurs, Irregular Rhythm Abdomen: bowel sounds present Extremities: other (She has mild non-pitting edema of her bilateral lower extremities. L leg is larger, circumferentially, than the R and she states that has been like that for many years.) Skin: ecchymosis (Scattered ecchymosis on her chest and arms.) - Problem List & Annotations (1) Physical deconditioning SNOMED Code(s): 68765487292576 Code(s): R53.81 - OTHER MALAISE Status: Acute Current Visit: Yes (2) Congestive heart failure SNOMED Code(s): 44433886 Code(s): I50.9 - HEART FAILURE, UNSPECIFIED Status: Acute Current Visit: Yes (3) Hypertension SNOMED Code(s): 36447071 Code(s): I10 - ESSENTIAL (PRIMARY) HYPERTENSION Status: Acute Current Visit: Yes (4) Chronic anticoagulation SNOMED Code(s): 599770175 Code(s): Z79.01 - PASTRY MIXER (CURRENT) USE OF ANTICOAGULANTS Status: Acute Current Visit: Yes (5) Arthritis SNOMED Code(s): 3268966, 058706437 Code(s): M19.90 - UNSPECIFIED OSTEOARTHRITIS, UNSPECIFIED SITE Status: Acute Current Visit: Yes - Problem List Review Problem List Initiated/Reviewed/Updated: Yes - Plan Plan:: Discontinue telemetry. Discontinue Cardizem due to to hypotension. More important for her to be on beta-eunice and KAHLIL-inhibitor given her heart failure. If need additional BP and rate control will increase the coreg. PT eval and treat. Discharge dependent on progress with PT.
[2016-11-21] MEDS: Warfarin 5 MG Tab PO SCH (17:58)
[2016-11-21] MEDS: Rosuvastatin 10 MG Tab PO SCH (21:22)
[2016-11-21] MEDS: Multivitamins with Minerals/Iron/Folic Acid/Lycopene Tab PO SCH (21:23)
[2016-11-22] MEDS: Levothyroxine 100 MCG Tab PO SCH (06:21)
[2016-11-22] MEDS: Chondroitin/Glucosamine Cap PO SCH (08:45)
[2016-11-22] MEDS: Sertraline 50 MG Tab PO SCH (08:45)
[2016-11-22] MEDS: Potassium Chloride 20 MEQ Tab.ER PO SCH ×2 (08:46→18:04)
[2016-11-22] MEDS: Clopidogrel 75 MG Tab PO SCH (08:47)
[2016-11-22] MEDS: Aspirin 81 MG Tab.EC PO SCH (08:47)
[2016-11-22] MEDS: Nystatin Topical Powder 15 GM Bottle TOP SCH ×3 (08:47→21:15)
[2016-11-22] MEDS: Lutein/Minerals/Vitamins A, C & E Tab PO SCH (08:47)
[2016-11-22] MEDS: Fish Oil/Omega-3 Fatty Acids 1 Gm Cap PO SCH ×2 (08:47→21:16)
[2016-11-22] MEDS: Lisinopril 5 MG Tab PO SCH (08:48)
[2016-11-22] MEDS: Loratadine 10 MG Tab PO SCH (08:49)
[2016-11-22] MEDS: Bumetanide 1 MG Tab PO SCH ×2 (08:49→18:00)
[2016-11-22] MEDS: Carvedilol 6.25 MG Tab PO SCH ×2 (08:50→18:00)
[2016-11-22] MEDS: Hydrocortisone 2.5% Crm 30 GM Tube TOP SCH ×2 (08:51→21:14)
[2016-11-22] MEDS: Pregabalin 25 MG Cap PO SCH ×3 (09:04→21:19)
[2016-11-22] MEDS ORDERED: Warfarin 2.5 MG Tab PO SCH (18:00)
[2016-11-22] MEDS: Warfarin 5 MG Tab PO SCH (18:03)
[2016-11-22] MEDS: Rosuvastatin 10 MG Tab PO SCH (21:15)
[2016-11-22] MEDS: Multivitamins with Minerals/Iron/Folic Acid/Lycopene Tab PO SCH (21:15)
[2016-11-23] MEDS: Levothyroxine 100 MCG Tab PO SCH (06:23)
[2016-11-23] MEDS: Acetaminophen 325 MG Tab PO PRN ×2 (06:27→19:35)
[2016-11-23] MEDS ORDERED: Magnesium Hydroxide 400 MG/5 ML Susp 30 ML Cup PO PRN (08:39)
--- NOTE | 2016-11-23 08:47 | PCM.PN ---
- General Info Date of Service: 11/23/16 Admission Dx/Problem (Free Text): Deconditioning - Review of Systems Systems Review Comment:: Kortney is seen today on swingbed rounds. She was started on vancomycin with pharm to dose on 11/22/16 due to enterococcus growing from a small buttock ulceration. She has no leukocytosis or fevers. She states her PICC Line was placed this morning. She has no concerns. She does state she has been a bit constipated but is drinking black coffee and eating oatmeal and that usually works for her. If not she then takes some milk of magnesia. She reports her pain has improved on the buttock ulceration spot. She has no SOB or swelling. She notes PT has been progressing well and she is even able to walk on her own with the walker. - Patient Data Vitals - most recent: Last Vital Signs Temp 98.2 F 11/23/16 06:41 Pulse 71 11/23/16 06:41 Resp 20 11/23/16 06:41 BP 130/52 L 11/23/16 06:41 Pulse Ox 92 L 11/23/16 06:41 Weight - most recent: 175 lb 9.6 oz I&O - last 24 hours: Intake & Output 11/22/16 11/23/16 11/23/16 22:59 06:59 14:59 Intake Total 790 935 Output Total 1150 1300 Balance -360 -365 Lab Results last 24 hrs: Laboratory Results - last 24 hr 11/23/16 Range/Units 07:17 PT 17.7 H (8.9-11.4) SEC INR 1.7 H (0.9-1.1) [place] Results last 24 hrs: Microbiology 11/20/16 10:30 Wound Culture - Final Buttock, Unspecified Enterococcus Species Med Orders - Current: Current Medications Acetaminophen (Tylenol) 650 mg PO Q6H PRN PRN Reason: Pain Last Admin: 11/23/16 06:27 Dose: 650 mg Albuterol (Ventolin Hfa) 0 gm INH Q4H PRN PRN Reason: Shortness of Breath Albuterol/Ipratropium (Duoneb 3.0-0.5 Mg/3 Ml) 3 ml NEB Q4HRRT PRN PRN Reason: Shortness of Breath Aspirin (Halfprin) 81 mg PO BRK [facility] Last Admin: 11/22/16 08:47 Dose: 81 mg Bumetanide (Bumex) 1 mg PO BIDDIURETIC [facility] Last Admin: 11/22/16 18:00 Dose: 1 mg Carvedilol (Coreg) 3.125 mg PO BIDMEALS [facility] Last Admin: 11/22/16 18:00 Dose: 3.125 mg Clopidogrel Bisulfate (Plavix) 75 mg PO DAILY [facility] Last Admin: 11/22/16 08:47 Dose: 75 mg Fish Oil (Fish Oil) 1 gm PO BID [facility] Last Admin: 11/22/16 21:16 Dose: 1 gm Glucosamine/Chondroitin (Glucosamine-Chondroitin 500-400 Capsule) 2 cap PO DAILY [facility] Last Admin: 11/22/16 08:45 Dose: 2 cap Hydrocortisone (Proctozone-Hc 2.5% Crm) 0 gm TOP BID [facility] Last Admin: 11/22/16 21:14 Dose: 1 applic Vancomycin HCl 1 gm/ Sodium (Chloride) 270 mls @ 180 mls/hr IV Q12H [facility] Last Admin: 11/23/16 06:23 Dose: 180 mls/hr Levothyroxine Sodium (Synthroid) 100 mcg PO ACBRK [facility] Last Admin: 11/23/16 06:23 Dose: 100 mcg Lisinopril (Prinivil) 2.5 mg PO DAILY [facility] Last Admin: 11/22/16 08:48 Dose: 2.5 mg Loratadine (Claritin) 10 mg PO DAILY [facility] Last Admin: 11/22/16 08:49 Dose: 10 mg Magnesium Hydroxide (Milk Of Magnesia) 30 ml PO DAILY PRN PRN Reason: Constipation Multivitamins/Minerals (Centrum) 1 tab PO BEDTIME [facility] Last Admin: 11/22/16 21:15 Dose: 1 tab Multivitamins/Minerals (Ocuvite) 1 each PO DAILY [facility] Last Admin: 11/22/16 08:47 Dose: 1 each Warfarin Pharmacy To (Dose) 1 dose .XX ASDIRECTED [facility] Nystatin (Nystop) 0 gm TOP TID [facility] Last Admin: 11/22/16 21:15 Dose: 1 applic Potassium Chloride (Klor-Con M20) 40 meq PO DAILY@1800 [facility] Last Admin: 11/22/16 18:04 Dose: 40 meq Potassium Chloride (Klor-Con M20) 60 meq PO DAILY [facility] Last Admin: 11/22/16 08:46 Dose: 60 meq Pregabalin (Lyrica) 100 mg PO TID [facility] Last Admin: 11/22/16 21:19 Dose: 100 mg Rosuvastatin Calcium (Crestor) 5 mg PO BEDTIME [facility] Last Admin: 11/22/16 21:15 Dose: 5 mg Senna/Docusate Sodium (Senna Plus) 1 tab PO DAILY PRN PRN Reason: Constipation Sertraline HCl (Zoloft) 100 mg PO DAILY [facility] Last Admin: 11/22/16 08:45 Dose: 100 mg Vancomycin HCl (Pharmacy To Dose - Vancomycin) 1 dose .XX ASDIRECTED [facility] Warfarin Sodium (Coumadin) 5 mg PO DAILY@1800 [facility] Last Admin: 11/22/16 18:03 Dose: 5 mg Warfarin Sodium (Coumadin) 2.5 mg PO TuThSa@1800 [facility] Last Admin: 11/22/16 18:03 Dose: 2.5 mg Discontinued Medications Atropine Sulfate (Atropine 0.1 Mg/Ml) 0 mg IVPUSH ASDIRECTED PRN PRN Reason: Heart Diltiazem HCl (Cardizem Cd) 120 mg PO DAILY [facility] Last Admin: 11/21/16 08:43 Dose: Not Given Epinephrine HCl (Epinephrine 1:10,000) 1 mg IVPUSH ASDIRECTED PRN PRN Reason: Heart Vancomycin HCl 1 gm/ Sodium (Chloride) 270 mls @ 180 mls/hr IV Q12H [facility] Last Admin: 11/23/16 07:34 Dose: Not Given Lidocaine HCl (Xylocaine 2%) 0 mg IVPUSH ASDIRECTED PRN PRN Reason: Heart Nitroglycerin (Nitrostat) 0.4 mg SL ASDIRECTED PRN PRN Reason: Heart Warfarin Sodium (Coumadin) 5 mg PO ONETIME ONE Stop: 11/19/16 18:01 Last Admin: 11/19/16 19:35 Dose: 5 mg - Exam General: alert, oriented, cooperative, no acute distress Lungs: Clear to auscultation, Normal respiratory effort Cardiovascular: No Murmurs, Irregular Rhythm Abdomen: bowel sounds present Back Exam: Normal Inspection Extremities: no edema Skin: other (Small ulceration on her coccyx. No drainage.) - Problem List & Annotations (1) Physical deconditioning SNOMED Code(s): 35135092402821 Code(s): R53.81 - OTHER MALAISE Status: Acute Current Visit: Yes (2) Congestive heart failure SNOMED Code(s): 46517467 Code(s): I50.9 - HEART FAILURE, UNSPECIFIED Status: Acute Current Visit: Yes (3) Hypertension SNOMED Code(s): 43868064 Code(s): I10 - ESSENTIAL (PRIMARY) HYPERTENSION Status: Acute Current Visit: Yes (4) Chronic anticoagulation SNOMED Code(s): 744735208 Code(s): Z79.01 - SENIOR CARE (CURRENT) USE OF ANTICOAGULANTS Status: Acute Current Visit: Yes (5) Arthritis SNOMED Code(s): 4564356, 052137129 Code(s): M19.90 - UNSPECIFIED OSTEOARTHRITIS, UNSPECIFIED SITE Status: Acute Current Visit: Yes - Problem List Review Problem List Initiated/Reviewed/Updated: Yes - My Orders Last 24 Hours: My Active Orders 11/23/16 08:39 Magnesium Hydroxide [Milk of Magnesia] 30 ml PO DAILY PRN 11/24/16 05:30 VANCOMYCIN TROUGH [CHEM] Routine 11/26/16 14:00 Swallowing Function w Video [CR] Routine - Plan Plan:: Warfarin adjusted yesterday due to subtherapeutic INR. Will continue to check INR. I added MOM today for her to use PRN for constipation should she need this. Antibiotics for a total of 7 days, stop date 11/29/16. PT eval and treat. Discharge dependent on progress with PT. If she does well, may be able to discharge when she completes her antibiotics.
[2016-11-23] MEDS: Carvedilol 6.25 MG Tab PO SCH ×2 (09:25→17:13)
[2016-11-23] MEDS: Chondroitin/Glucosamine Cap PO SCH (09:26)
[2016-11-23] MEDS: Bumetanide 1 MG Tab PO SCH ×2 (09:26→17:12)
[2016-11-23] MEDS: Loratadine 10 MG Tab PO SCH (09:26)
[2016-11-23] MEDS: Fish Oil/Omega-3 Fatty Acids 1 Gm Cap PO SCH ×2 (09:26→21:17)
[2016-11-23] MEDS: Aspirin 81 MG Tab.EC PO SCH (09:26)
[2016-11-23] MEDS: Potassium Chloride 20 MEQ Tab.ER PO SCH ×2 (09:27→17:14)
[2016-11-23] MEDS: Clopidogrel 75 MG Tab PO SCH (09:28)
[2016-11-23] MEDS: Lutein/Minerals/Vitamins A, C & E Tab PO SCH (09:28)
[2016-11-23] MEDS: Hydrocortisone 2.5% Crm 30 GM Tube TOP SCH ×2 (09:28→21:22)
[2016-11-23] MEDS: Lisinopril 5 MG Tab PO SCH (09:28)
[2016-11-23] MEDS: Nystatin Topical Powder 15 GM Bottle TOP SCH ×3 (09:28→21:20)
[2016-11-23] MEDS: Sertraline 50 MG Tab PO SCH (09:39)
[2016-11-23] MEDS: Pregabalin 25 MG Cap PO SCH ×3 (09:39→21:17)
[2016-11-23] MEDS: Warfarin 2.5 MG Tab PO SCH (17:12)
[2016-11-23] MEDS: Warfarin 5 MG Tab PO SCH (17:13)
[2016-11-23] MEDS ORDERED: Sodium Chloride 0.9% 50 ML SDV FLUSH SCH (18:00)
[2016-11-23] MEDS: Sodium Chloride 0.9% 10 ML Syringe IV SCH (20:22)
[2016-11-23] MEDS: Multivitamins with Minerals/Iron/Folic Acid/Lycopene Tab PO SCH (21:17)
[2016-11-23] MEDS: Rosuvastatin 10 MG Tab PO SCH (21:17)
[2016-11-24] MEDS: Levothyroxine 100 MCG Tab PO SCH (06:11)
[2016-11-24 06:53] LABS: CHLORIDE,CL 107 mmol/L (98-115); SODIUM,NA 143 mmol/L (136-145)
[2016-11-24] MEDS: Carvedilol 6.25 MG Tab PO SCH ×2 (08:21→17:19)
[2016-11-24] MEDS: Bumetanide 1 MG Tab PO SCH ×2 (08:22→17:19)
[2016-11-24] MEDS: Potassium Chloride 20 MEQ Tab.ER PO SCH ×2 (08:22→17:20)
[2016-11-24] MEDS: Chondroitin/Glucosamine Cap PO SCH (08:22)
[2016-11-24] MEDS: Aspirin 81 MG Tab.EC PO SCH (08:22)
[2016-11-24] MEDS: Pregabalin 25 MG Cap PO SCH ×3 (08:22→20:22)
[2016-11-24] MEDS: Loratadine 10 MG Tab PO SCH (08:22)
[2016-11-24] MEDS: Fish Oil/Omega-3 Fatty Acids 1 Gm Cap PO SCH ×2 (08:22→20:22)
[2016-11-24] MEDS: Sertraline 50 MG Tab PO SCH (08:23)
[2016-11-24] MEDS: Lisinopril 5 MG Tab PO SCH (08:23)
[2016-11-24] MEDS: Lutein/Minerals/Vitamins A, C & E Tab PO SCH (08:23)
[2016-11-24] MEDS: Clopidogrel 75 MG Tab PO SCH (08:23)
[2016-11-24] MEDS: Sodium Chloride 0.9% 10 ML Syringe IV SCH ×3 (08:25→20:21)
[2016-11-24] MEDS: Acetaminophen 325 MG Tab PO PRN ×2 (08:36→16:14)
[2016-11-24] MEDS: Nystatin Topical Powder 15 GM Bottle TOP SCH ×3 (08:36→22:26)
[2016-11-24] MEDS: Hydrocortisone 2.5% Crm 30 GM Tube TOP SCH ×2 (08:37→22:26)
[2016-11-24] MEDS: Warfarin 5 MG Tab PO SCH (17:19)
[2016-11-24] MEDS: Warfarin 2.5 MG Tab PO SCH (17:20)
[2016-11-24] MEDS ORDERED: Sodium Chloride 0.9% 50 ML IV SCH (18:00)
[2016-11-24] MEDS: Sodium Chloride 0.9% 50 ML IV SCH (18:26)
[2016-11-24] MEDS: Rosuvastatin 10 MG Tab PO SCH (20:22)
[2016-11-24] MEDS: Multivitamins with Minerals/Iron/Folic Acid/Lycopene Tab PO SCH (20:22)
[2016-11-25] MEDS: Levothyroxine 100 MCG Tab PO SCH (06:26)
[2016-11-25] MEDS: Acetaminophen 325 MG Tab PO PRN ×2 (06:26→15:41)
[2016-11-25] MEDS: Carvedilol 6.25 MG Tab PO SCH ×2 (07:47→17:23)
[2016-11-25] MEDS: Aspirin 81 MG Tab.EC PO SCH (07:47)
[2016-11-25] MEDS: Pregabalin 25 MG Cap PO SCH ×3 (08:20→21:00)
[2016-11-25] MEDS: Loratadine 10 MG Tab PO SCH (08:20)
[2016-11-25] MEDS: Lutein/Minerals/Vitamins A, C & E Tab PO SCH (08:20)
[2016-11-25] MEDS: Bumetanide 1 MG Tab PO SCH ×2 (08:20→17:19)
[2016-11-25] MEDS: Fish Oil/Omega-3 Fatty Acids 1 Gm Cap PO SCH ×2 (08:20→21:00)
[2016-11-25] MEDS: Potassium Chloride 20 MEQ Tab.ER PO SCH ×2 (08:20→17:19)
[2016-11-25] MEDS: Chondroitin/Glucosamine Cap PO SCH (08:20)
[2016-11-25] MEDS: Sertraline 50 MG Tab PO SCH (08:21)
[2016-11-25] MEDS: Clopidogrel 75 MG Tab PO SCH (08:21)
[2016-11-25] MEDS: Lisinopril 5 MG Tab PO SCH (08:21)
[2016-11-25] MEDS: Sodium Chloride 0.9% 10 ML Syringe IV SCH ×2 (08:33→21:10)
[2016-11-25] MEDS: Hydrocortisone 2.5% Crm 30 GM Tube TOP SCH ×2 (09:25→21:38)
[2016-11-25] MEDS: Nystatin Topical Powder 15 GM Bottle TOP SCH ×3 (09:25→21:37)
[2016-11-25] MEDS: Sodium Chloride 0.9% 50 ML IV SCH (18:24)
[2016-11-25] MEDS: Rosuvastatin 10 MG Tab PO SCH (20:59)
[2016-11-25] MEDS: Multivitamins with Minerals/Iron/Folic Acid/Lycopene Tab PO SCH (21:00)
[2016-11-26] MEDS: Levothyroxine 100 MCG Tab PO SCH (06:33)
[2016-11-26] MEDS: Pregabalin 25 MG Cap PO SCH ×4 (07:35→21:04)
[2016-11-26] MEDS: Acetaminophen 325 MG Tab PO PRN ×2 (07:36→14:00)
[2016-11-26] MEDS: Carvedilol 6.25 MG Tab PO SCH ×2 (07:37→17:48)
[2016-11-26] MEDS: Loratadine 10 MG Tab PO SCH ×2 (07:38→10:09)
[2016-11-26] MEDS: Potassium Chloride 20 MEQ Tab.ER PO SCH ×3 (07:38→17:49)
[2016-11-26] MEDS: Clopidogrel 75 MG Tab PO SCH ×2 (07:39→10:10)
[2016-11-26] MEDS: Chondroitin/Glucosamine Cap PO SCH ×2 (07:39→10:10)
[2016-11-26] MEDS: Aspirin 81 MG Tab.EC PO SCH (07:40)
[2016-11-26] MEDS: Sertraline 50 MG Tab PO SCH ×2 (07:40→10:11)
[2016-11-26] MEDS: Lisinopril 5 MG Tab PO SCH ×2 (07:40→10:10)
[2016-11-26] MEDS: Lutein/Minerals/Vitamins A, C & E Tab PO SCH ×2 (07:41→10:10)
[2016-11-26] MEDS: Fish Oil/Omega-3 Fatty Acids 1 Gm Cap PO SCH ×3 (07:41→21:02)
[2016-11-26 08:20] LABS: CHLORIDE,CL 107 mmol/L (98-115); SODIUM,NA 144 mmol/L (136-145)
[2016-11-26] MEDS: Sodium Chloride 0.9% 10 ML Syringe IV SCH ×2 (10:08→21:02)
[2016-11-26] MEDS: Bumetanide 1 MG Tab PO SCH ×3 (10:09→17:48)
[2016-11-26] MEDS: Hydrocortisone 2.5% Crm 30 GM Tube TOP SCH ×2 (10:10→21:01)
[2016-11-26] MEDS: Nystatin Topical Powder 15 GM Bottle TOP SCH ×3 (10:10→21:01)
[2016-11-26] MEDS: Warfarin 5 MG Tab PO SCH (17:49)
[2016-11-26] MEDS: Warfarin 2.5 MG Tab PO SCH (17:49)
[2016-11-26] MEDS: Sodium Chloride 0.9% 50 ML IV SCH (20:00)
[2016-11-26] MEDS: Multivitamins with Minerals/Iron/Folic Acid/Lycopene Tab PO SCH (21:02)
[2016-11-26] MEDS: Rosuvastatin 10 MG Tab PO SCH (21:02)
[2016-11-27] MEDS: Levothyroxine 100 MCG Tab PO SCH (06:10)
[2016-11-27] MEDS: Aspirin 81 MG Tab.EC PO SCH (08:37)
[2016-11-27] MEDS: Carvedilol 6.25 MG Tab PO SCH ×2 (08:37→17:09)
[2016-11-27] MEDS: Chondroitin/Glucosamine Cap PO SCH (08:38)
[2016-11-27] MEDS: Loratadine 10 MG Tab PO SCH (08:38)
[2016-11-27] MEDS: Bumetanide 1 MG Tab PO SCH ×2 (08:38→13:21)
[2016-11-27] MEDS: Fish Oil/Omega-3 Fatty Acids 1 Gm Cap PO SCH ×2 (08:38→21:56)
[2016-11-27] MEDS: Clopidogrel 75 MG Tab PO SCH (08:39)
[2016-11-27] MEDS: Lutein/Minerals/Vitamins A, C & E Tab PO SCH (08:39)
[2016-11-27] MEDS: Potassium Chloride 20 MEQ Tab.ER PO SCH ×2 (08:39→17:09)
[2016-11-27] MEDS: Nystatin Topical Powder 15 GM Bottle TOP SCH ×3 (08:39→21:56)
[2016-11-27] MEDS: Lisinopril 5 MG Tab PO SCH (08:39)
[2016-11-27] MEDS: Hydrocortisone 2.5% Crm 30 GM Tube TOP SCH ×2 (08:40→21:57)
[2016-11-27] MEDS: Sertraline 50 MG Tab PO SCH (08:40)
[2016-11-27] MEDS: Pregabalin 25 MG Cap PO SCH ×3 (08:49→21:56)
[2016-11-27] MEDS: Acetaminophen 325 MG Tab PO PRN (08:49)
[2016-11-27] MEDS: Sodium Chloride 0.9% 10 ML Syringe IV SCH ×2 (08:49→21:59)
[2016-11-27] MEDS: Warfarin 5 MG Tab PO SCH (17:09)
[2016-11-27] MEDS: Sodium Chloride 0.9% 50 ML IV SCH (18:07)
[2016-11-27] MEDS: Rosuvastatin 10 MG Tab PO SCH (21:56)
[2016-11-27] MEDS: Multivitamins with Minerals/Iron/Folic Acid/Lycopene Tab PO SCH (21:56)
[2016-11-28] MEDS: Levothyroxine 100 MCG Tab PO SCH (06:27)
[2016-11-28] MEDS: Acetaminophen 325 MG Tab PO PRN (06:42)
[2016-11-28 07:44] LABS: CHLORIDE,CL 108 mmol/L (98-115); SODIUM,NA 145 mmol/L (136-145)
[2016-11-28] MEDS: Carvedilol 6.25 MG Tab PO SCH ×2 (08:09→17:24)
[2016-11-28] MEDS: Bumetanide 1 MG Tab PO SCH ×2 (08:09→13:14)
[2016-11-28] MEDS: Fish Oil/Omega-3 Fatty Acids 1 Gm Cap PO SCH ×2 (08:10→20:52)
[2016-11-28] MEDS: Potassium Chloride 20 MEQ Tab.ER PO SCH ×2 (08:10→17:24)
[2016-11-28] MEDS: Loratadine 10 MG Tab PO SCH (08:10)
[2016-11-28] MEDS: Aspirin 81 MG Tab.EC PO SCH (08:10)
[2016-11-28] MEDS: Pregabalin 25 MG Cap PO SCH ×3 (08:10→20:52)
[2016-11-28] MEDS: Chondroitin/Glucosamine Cap PO SCH (08:10)
[2016-11-28] MEDS: Lutein/Minerals/Vitamins A, C & E Tab PO SCH (08:11)
[2016-11-28] MEDS: Clopidogrel 75 MG Tab PO SCH (08:11)
[2016-11-28] MEDS: Lisinopril 5 MG Tab PO SCH (08:11)
[2016-11-28] MEDS: Sertraline 50 MG Tab PO SCH (08:11)
[2016-11-28] MEDS: Sodium Chloride 0.9% 10 ML Syringe IV SCH ×3 (09:29→22:59)
[2016-11-28] MEDS: Hydrocortisone 2.5% Crm 30 GM Tube TOP SCH ×2 (09:48→20:52)
[2016-11-28] MEDS: Nystatin Topical Powder 15 GM Bottle TOP SCH ×3 (09:48→20:52)
--- NOTE | 2016-11-28 11:40 | PN ---
11/27/2016PATIENT NAME: LISA JARA This is a swing bed documentation. SUBJECTIVE: This is an 80-year-old female, who was admitted to the [facility] on 11/19/2016, with deconditioning following extended illness. This is very well outlined in previous notes. In quick summary, she was previously scheduled for knee surgery on 10/30/2016. She has a history of atrial fibrillation and is being bridged with Lovenox for anticoagulation. She developed a hematoma on the left side of her abdomen. She was seen in the emergency room and apparently decompensated from a respiratory standpoint and was intubated and sent to [place]. She had an extended hospitalization there, which included acute hypoxic respiratory failure, which has improved greatly. It was felt that the hypoxic respiratory failure was secondary to acute on chronic congestive heart failure. She does have coronary artery disease, and did undergo cardiac stenting while hospitalized as well. She has been having physical therapy on a daily basis and is doing wonderfully. Her plan for discharge is 12/03/2016. She is returning to a town home in [facility] [place], where she resides by herself. She does have a daughter that lives in town, who will be quite helpful for her as well. She will need some home health and possibly home PT. She states she is feeling well. She has developed a decubitus ulcer on her coccyx which appears to be improving. She is on intravenous vancomycin which she is receiving through a PICC line. Vancomycin trough today was 23.5, which is elevated, the dose was adjusted by pharmacy. She had a. A basic metabolic panel performed yesterday, which showed a sodium of 144, potassium 3.3, BUN and creatinine 14 and 0.47 respectively, with a GFR of greater than 60. Calcium was slightly low at 8.6. I do not have an albumin to correct the calcium. The patient denies any chest pain or shortness of breath. She does complain of pain in her left knee which was previously scheduled for replacement. She is unsure whether she will be able to complete this after she is discharged. Apparently, she needs to stay on triple anticoagulation including Plavix, aspirin, and warfarin for one year. After one year she may have the Plavix discontinued. Due to her chronic atrial fibrillation, she will need to continue on warfarin and aspirin. PHYSICAL EXAMINATION: VITAL SIGNS: She is afebrile, temp is 98.7, pulse 74, respirations 16, blood pressure 114/56. Her oxygen saturation is 96% on room air. GENERAL: She does appear pale, in no distress. SKIN: Warm and dry to touch. CARDIAC: Reveals S1 and S2 to be normal, with a grade 3/6 murmur. LUNGS: Clear without rales, wheezes, or rhonchi. EXTREMITIES: She does have mild edema in her feet, however, her ankles have minimal. IMPRESSION: 1. Deconditioning with weakness following an extended illness. She is improving and responding to physical therapy extremely well. Plan for discharge is 12/03/2016. 2. Decubitus ulcer on the coccyx. This measures approximately the 0.75 cm diameter, it does not seem to be tunneling. It appears to be fairly superficial. It was cultured at one point in time, and grew Enterococcus. Due to her penicillin allergy, she is receiving vancomycin through a PICC line on a daily basis. 3. Chronic congestive heart failure, secondary to atrial fibrillation, and cardiomyopathy, this appears to be stable with her current regimen. 4. Hypokalemia. She is on 100 mEq of potassium daily, yet her potassium is only 3.3. She is receiving Bumex 1 mg b.i.d. She has been on furosemide in the past, however, developed dizziness with this. 5. Coronary artery disease. She is taking carvedilol. She is anticoagulated for atrial fibrillation and coronary artery disease with triple anticoagulation including Plavix, aspirin, and warfarin. 6. Hypothyroidism. She is on thyroid replacement. She is stable and improving. We will continue to plan for discharge on 12/03/2016. /[id number]/MODL
[2016-11-28] MEDS: Warfarin 2.5 MG Tab PO SCH (17:24)
[2016-11-28] MEDS: Warfarin 5 MG Tab PO SCH (17:24)
[2016-11-28] MEDS: Multivitamins with Minerals/Iron/Folic Acid/Lycopene Tab PO SCH (20:52)
[2016-11-28] MEDS: Rosuvastatin 10 MG Tab PO SCH (20:52)
[2016-11-28] MEDS: Sodium Chloride 0.9% 50 ML IV SCH (20:53)
[2016-11-29] MEDS: Levothyroxine 100 MCG Tab PO SCH (06:17)
[2016-11-29] MEDS: Hydrocortisone 2.5% Crm 30 GM Tube TOP SCH ×2 (08:17→21:30)
[2016-11-29] MEDS: Sertraline 50 MG Tab PO SCH (08:18)
[2016-11-29] MEDS: Clopidogrel 75 MG Tab PO SCH (08:19)
[2016-11-29] MEDS: Lisinopril 5 MG Tab PO SCH (08:19)
[2016-11-29] MEDS: Nystatin Topical Powder 15 GM Bottle TOP SCH ×3 (08:19→21:30)
[2016-11-29] MEDS: Lutein/Minerals/Vitamins A, C & E Tab PO SCH (08:19)
[2016-11-29] MEDS: Chondroitin/Glucosamine Cap PO SCH (08:20)
[2016-11-29] MEDS: Fish Oil/Omega-3 Fatty Acids 1 Gm Cap PO SCH ×2 (08:20→21:30)
[2016-11-29] MEDS: Carvedilol 6.25 MG Tab PO SCH ×2 (08:21→17:03)
[2016-11-29] MEDS: Bumetanide 1 MG Tab PO SCH ×2 (08:21→15:09)
[2016-11-29] MEDS: Loratadine 10 MG Tab PO SCH (08:21)
[2016-11-29] MEDS: Aspirin 81 MG Tab.EC PO SCH (08:21)
[2016-11-29] MEDS: Potassium Chloride 20 MEQ Tab.ER PO SCH ×2 (08:22→17:08)
[2016-11-29] MEDS: Pregabalin 25 MG Cap PO SCH ×3 (08:29→21:30)
[2016-11-29] MEDS: Sodium Chloride 0.9% 10 ML Syringe IV SCH ×3 (13:00→22:13)
[2016-11-29] MEDS: Warfarin 5 MG Tab PO SCH (17:07)
[2016-11-29] MEDS: Acetaminophen 325 MG Tab PO PRN (17:08)
[2016-11-29] MEDS: Multivitamins with Minerals/Iron/Folic Acid/Lycopene Tab PO SCH (21:30)
[2016-11-29] MEDS: Rosuvastatin 10 MG Tab PO SCH (21:30)
[2016-11-29] MEDS: Sodium Chloride 0.9% 50 ML IV SCH (21:31)
[2016-11-30] MEDS: Levothyroxine 100 MCG Tab PO SCH (06:19)
[2016-11-30] MEDS: Lutein/Minerals/Vitamins A, C & E Tab PO SCH (08:14)
[2016-11-30] MEDS: Fish Oil/Omega-3 Fatty Acids 1 Gm Cap PO SCH ×2 (08:14→21:03)
[2016-11-30] MEDS: Loratadine 10 MG Tab PO SCH (08:14)
[2016-11-30] MEDS: Lisinopril 5 MG Tab PO SCH (08:14)
[2016-11-30] MEDS: Carvedilol 6.25 MG Tab PO SCH ×2 (08:15→17:54)
[2016-11-30] MEDS: Bumetanide 1 MG Tab PO SCH ×2 (08:15→15:06)
[2016-11-30] MEDS: Sertraline 50 MG Tab PO SCH (08:15)
[2016-11-30] MEDS: Clopidogrel 75 MG Tab PO SCH (08:15)
[2016-11-30] MEDS: Chondroitin/Glucosamine Cap PO SCH (08:15)
[2016-11-30] MEDS: Aspirin 81 MG Tab.EC PO SCH (08:15)
[2016-11-30] MEDS: Potassium Chloride 20 MEQ Tab.ER PO SCH ×2 (08:15→17:55)
[2016-11-30] MEDS: Hydrocortisone 2.5% Crm 30 GM Tube TOP SCH ×2 (08:16→21:03)
[2016-11-30] MEDS: Nystatin Topical Powder 15 GM Bottle TOP SCH ×3 (08:16→21:03)
[2016-11-30] MEDS: Pregabalin 25 MG Cap PO SCH ×3 (08:21→21:03)
--- NOTE | 2016-11-30 09:00 | PCM.PN ---
- General Info Date of Service: 11/30/16 Admission Dx/Problem (Free Text): Deconditioning - Review of Systems Systems Review Comment:: Kortney is seen today on swignbed rounds. She was admitted 11/19/16 with deconditioning after acute respiratory distress secondary to CHF exacerbation. She has been on vancomycin which completed yesterday for a sacral ulcer. She reports this is better and she has very little pain. She went to her daughters last evening and had a little trouble on some steps getting into the house but otherwise is good ambulating on flat surfaces. She has had a bowel movement. - Patient Data Vitals - most recent: Last Vital Signs Temp 97.6 F 11/30/16 06:44 Pulse 62 11/30/16 08:15 Resp 16 11/30/16 06:44 BP 111/52 L 11/30/16 08:15 Pulse Ox 93 L 11/30/16 06:44 Weight - most recent: 177 lb 9.6 oz I&O - last 24 hours: Intake & Output 11/29/16 11/30/16 11/30/16 22:59 06:59 14:59 Intake Total 50 200 Balance 50 200 Lab Results last 24 hrs: Laboratory Results - last 24 hr 11/30/16 Range/Units 07:20 INR 2.4 H (0.9-1.1) Med Orders - Current: Current Medications Acetaminophen (Tylenol) 650 mg PO Q6H PRN PRN Reason: Pain Last Admin: 11/29/16 17:08 Dose: 650 mg Albuterol (Ventolin Hfa) 0 gm INH Q4H PRN PRN Reason: Shortness of Breath Albuterol/Ipratropium (Duoneb 3.0-0.5 Mg/3 Ml) 3 ml NEB Q4HRRT PRN PRN Reason: Shortness of Breath Aspirin (Halfprin) 81 mg PO BRK [facility] Last Admin: 11/30/16 08:15 Dose: 81 mg Bumetanide (Bumex) 1 mg PO 0800,1400 [facility] Last Admin: 11/30/16 08:15 Dose: 1 mg Carvedilol (Coreg) 3.125 mg PO BIDMEALS [facility] Last Admin: 11/30/16 08:15 Dose: 3.125 mg Clopidogrel Bisulfate (Plavix) 75 mg PO DAILY [facility] Last Admin: 11/30/16 08:15 Dose: 75 mg Fish Oil (Fish Oil) 1 gm PO BID [facility] Last Admin: 11/30/16 08:14 Dose: 1 gm Glucosamine/Chondroitin (Glucosamine-Chondroitin 500-400 Capsule) 2 cap PO DAILY [facility] Last Admin: 11/30/16 08:15 Dose: 2 cap Hydrocortisone (Proctozone-Hc 2.5% Crm) 0 gm TOP BID [facility] Last Admin: 11/30/16 08:16 Dose: 1 applic Sodium Chloride (Normal Saline) 50 mls @ 50 mls/hr IV DAILY@2130 [facility] Last Admin: 11/29/16 21:31 Dose: Not Given Levothyroxine Sodium (Synthroid) 100 mcg PO ACBRK [facility] Last Admin: 11/30/16 06:19 Dose: 100 mcg Lisinopril (Prinivil) 2.5 mg PO DAILY [facility] Last Admin: 11/30/16 08:14 Dose: 2.5 mg Loratadine (Claritin) 10 mg PO DAILY [facility] Last Admin: 11/30/16 08:14 Dose: 10 mg Magnesium Hydroxide (Milk Of Magnesia) 30 ml PO DAILY PRN PRN Reason: Constipation Multivitamins/Minerals (Centrum) 1 tab PO BEDTIME [facility] Last Admin: 11/29/16 21:30 Dose: 1 tab Multivitamins/Minerals (Ocuvite) 1 each PO DAILY [facility] Last Admin: 11/30/16 08:14 Dose: 1 each Nystatin (Nystop) 0 gm TOP TID [facility] Last Admin: 11/30/16 08:16 Dose: 1 applic Potassium Chloride (Klor-Con M20) 40 meq PO DAILY@1800 [facility] Last Admin: 11/29/16 17:08 Dose: 40 meq Potassium Chloride (Klor-Con M20) 60 meq PO DAILY [facility] Last Admin: 11/30/16 08:15 Dose: 60 meq Pregabalin (Lyrica) 100 mg PO TID [facility] Last Admin: 11/30/16 08:21 Dose: 100 mg Rosuvastatin Calcium (Crestor) 5 mg PO BEDTIME [facility] Last Admin: 11/29/16 21:30 Dose: 5 mg Senna/Docusate Sodium (Senna Plus) 1 tab PO DAILY PRN PRN Reason: Constipation Sertraline HCl (Zoloft) 100 mg PO DAILY [facility] Last Admin: 11/30/16 08:15 Dose: 100 mg Sodium Chloride (Saline Flush) 10 ml IV Q12H [facility] Last Admin: 11/29/16 22:13 Dose: Not Given Warfarin Sodium (Coumadin) 5 mg PO DAILY@1800 [facility] Last Admin: 11/29/16 17:07 Dose: 5 mg Warfarin Sodium (Coumadin) 2.5 mg PO SuMoWeFrSa@1800 [facility] Last Admin: 11/28/16 17:24 Dose: 2.5 mg Discontinued Medications Atropine Sulfate (Atropine 0.1 Mg/Ml) 0 mg IVPUSH ASDIRECTED PRN PRN Reason: Heart Bumetanide (Bumex) 1 mg PO BIDDIURETIC [facility] Last Admin: 11/26/16 17:48 Dose: Not Given Diltiazem HCl (Cardizem Cd) 120 mg PO DAILY [facility] Last Admin: 11/21/16 08:43 Dose: Not Given Epinephrine HCl (Epinephrine 1:10,000) 1 mg IVPUSH ASDIRECTED PRN PRN Reason: Heart Vancomycin HCl 1 gm/ Sodium (Chloride) 270 mls @ 180 mls/hr IV Q12H [facility] Last Admin: 11/23/16 07:34 Dose: Not Given Vancomycin HCl 1 gm/ Sodium (Chloride) 270 mls @ 180 mls/hr IV Q12H [facility] Stop: 11/29/16 06:01 Last Admin: 11/24/16 07:22 Dose: Not Given Sodium Chloride (Normal Saline) 50 mls @ 50 mls/hr IV DAILY@1800 [facility] Vancomycin HCl 1 gm/ Sodium (Chloride) 270 mls @ 180 mls/hr IV Q12H [facility] Stop: 11/29/16 07:01 Last Admin: 11/27/16 11:29 Dose: Not Given Sodium Chloride (Normal Saline) 50 mls @ 50 mls/hr IV DAILY@1900 [facility] Last Admin: 11/27/16 18:07 Dose: Not Given Vancomycin HCl 1 gm/ Sodium (Chloride) 270 mls @ 180 mls/hr IV Q12H [facility] Stop: 11/29/16 12:00 Last Admin: 11/29/16 10:59 Dose: 180 mls/hr Lidocaine HCl (Xylocaine 2%) 0 mg IVPUSH ASDIRECTED PRN PRN Reason: Heart Nitroglycerin (Nitrostat) 0.4 mg SL ASDIRECTED PRN PRN Reason: Heart Sodium Chloride (Saline Flush) 10 ml IV Q12H [facility] Last Admin: 11/24/16 08:25 Dose: Not Given Sodium Chloride (Saline Flush) 10 ml IV Q12H [facility] Last Admin: 11/28/16 09:29 Dose: Not Given Vancomycin HCl (Pharmacy To Dose - Vancomycin) 1 dose .XX ASDIRECTED [facility] Warfarin Sodium (Coumadin) 5 mg PO ONETIME ONE Stop: 11/19/16 18:01 Last Admin: 11/19/16 19:35 Dose: 5 mg Warfarin Sodium (Coumadin) 2.5 mg PO TuThSa@1800 [facility] Last Admin: 11/22/16 18:03 Dose: 2.5 mg - Exam Quality Assessment: central line/PICC General: alert, oriented, cooperative Lungs: Clear to auscultation, Normal respiratory effort Cardiovascular: Irregular Rhythm Abdomen: bowel sounds present - Problem List & Annotations (1) Physical deconditioning SNOMED Code(s): 68521963034912 Code(s): R53.81 - OTHER MALAISE Status: Acute Current Visit: Yes (2) Congestive heart failure SNOMED Code(s): 59710627 Code(s): I50.9 - HEART FAILURE, UNSPECIFIED Status: Acute Current Visit: Yes (3) Hypertension SNOMED Code(s): 09618046 Code(s): I10 - ESSENTIAL (PRIMARY) HYPERTENSION Status: Acute Current Visit: Yes (4) Chronic anticoagulation SNOMED Code(s): 248743504 Code(s): Z79.01 - IMPLEMENT MECHANIC (CURRENT) USE OF ANTICOAGULANTS Status: Acute Current Visit: Yes (5) Arthritis SNOMED Code(s): 8023331, 275220375 Code(s): M19.90 - UNSPECIFIED OSTEOARTHRITIS, UNSPECIFIED SITE Status: Acute Current Visit: Yes - Problem List Review Problem List Initiated/Reviewed/Updated: Yes - My Orders Last 24 Hours: My Active Orders 11/30/16 08:50 PICC Discontinue [Central Line PICC Discontinue] [OM.PC] Routine 12/01/16 05:30 INR,PT,PROTHROMBIN TIME [COAG] DAILY 12/02/16 05:30 INR,PT,PROTHROMBIN TIME [COAG] DAILY 12/03/16 05:30 INR,PT,PROTHROMBIN TIME [COAG] DAILY - Plan Plan:: PICC Line to be removed today. Anticipate discharge on 12/03/16.
[2016-11-30] MEDS: Sodium Chloride 0.9% 10 ML Syringe IV SCH (11:00)
[2016-11-30] MEDS: Acetaminophen 325 MG Tab PO PRN (15:08)
[2016-11-30] MEDS: Warfarin 2.5 MG Tab PO SCH (17:54)
[2016-11-30] MEDS: Warfarin 5 MG Tab PO SCH (17:55)
[2016-11-30] MEDS: Rosuvastatin 10 MG Tab PO SCH (21:03)
[2016-11-30] MEDS: Multivitamins with Minerals/Iron/Folic Acid/Lycopene Tab PO SCH (21:03)
[2016-12-01] MEDS: Levothyroxine 100 MCG Tab PO SCH (05:59)
[2016-12-01] MEDS: Carvedilol 6.25 MG Tab PO SCH ×2 (08:22→17:50)
[2016-12-01] MEDS: Bumetanide 1 MG Tab PO SCH ×2 (08:22→16:55)
[2016-12-01] MEDS: Chondroitin/Glucosamine Cap PO SCH (08:23)
[2016-12-01] MEDS: Aspirin 81 MG Tab.EC PO SCH (08:23)
[2016-12-01] MEDS: Fish Oil/Omega-3 Fatty Acids 1 Gm Cap PO SCH ×2 (08:23→20:52)
[2016-12-01] MEDS: Loratadine 10 MG Tab PO SCH (08:23)
[2016-12-01] MEDS: Potassium Chloride 20 MEQ Tab.ER PO SCH ×2 (08:24→17:51)
[2016-12-01] MEDS: Lutein/Minerals/Vitamins A, C & E Tab PO SCH (08:24)
[2016-12-01] MEDS: Nystatin Topical Powder 15 GM Bottle TOP SCH ×3 (08:24→20:53)
[2016-12-01] MEDS: Lisinopril 5 MG Tab PO SCH (08:25)
[2016-12-01] MEDS: Hydrocortisone 2.5% Crm 30 GM Tube TOP SCH ×2 (08:25→20:54)
[2016-12-01] MEDS: Sertraline 50 MG Tab PO SCH (08:25)
[2016-12-01] MEDS: Clopidogrel 75 MG Tab PO SCH (08:25)
[2016-12-01] MEDS: Pregabalin 25 MG Cap PO SCH ×3 (08:31→20:52)
[2016-12-01] MEDS: Warfarin 5 MG Tab PO SCH ×2 (17:30→19:00)
[2016-12-01] MEDS: Warfarin 2.5 MG Tab PO SCH (17:49)
[2016-12-01] MEDS: Rosuvastatin 10 MG Tab PO SCH (20:52)
[2016-12-01] MEDS: Multivitamins with Minerals/Iron/Folic Acid/Lycopene Tab PO SCH (20:52)
[2016-12-02] MEDS: Levothyroxine 100 MCG Tab PO SCH (06:18)
[2016-12-02 07:46] LABS: CHLORIDE,CL 108 mmol/L (98-115); SODIUM,NA 144 mmol/L (136-145)
[2016-12-02] MEDS: Bumetanide 1 MG Tab PO SCH ×2 (08:53→13:33)
[2016-12-02] MEDS: Fish Oil/Omega-3 Fatty Acids 1 Gm Cap PO SCH ×2 (08:54→20:27)
[2016-12-02] MEDS: Loratadine 10 MG Tab PO SCH (08:54)
[2016-12-02] MEDS: Aspirin 81 MG Tab.EC PO SCH (08:54)
[2016-12-02] MEDS: Carvedilol 6.25 MG Tab PO SCH ×2 (08:54→17:33)
[2016-12-02] MEDS: Chondroitin/Glucosamine Cap PO SCH (08:55)
[2016-12-02] MEDS: Nystatin Topical Powder 15 GM Bottle TOP SCH ×3 (08:55→20:28)
[2016-12-02] MEDS: Potassium Chloride 20 MEQ Tab.ER PO SCH ×2 (08:55→17:35)
[2016-12-02] MEDS: Lutein/Minerals/Vitamins A, C & E Tab PO SCH (08:55)
[2016-12-02] MEDS: Clopidogrel 75 MG Tab PO SCH (08:56)
[2016-12-02] MEDS: Lisinopril 5 MG Tab PO SCH (08:56)
[2016-12-02] MEDS: Hydrocortisone 2.5% Crm 30 GM Tube TOP SCH ×2 (08:56→20:28)
[2016-12-02] MEDS: Sertraline 50 MG Tab PO SCH (08:57)
[2016-12-02] MEDS: Pregabalin 25 MG Cap PO SCH ×3 (09:09→20:27)
[2016-12-02] MEDS: Warfarin 5 MG Tab PO SCH (17:35)
[2016-12-02] MEDS: Warfarin 2.5 MG Tab PO SCH (17:35)
[2016-12-02] MEDS: Acetaminophen 325 MG Tab PO PRN (19:31)
[2016-12-02] MEDS: Multivitamins with Minerals/Iron/Folic Acid/Lycopene Tab PO SCH (20:27)
[2016-12-02] MEDS: Rosuvastatin 10 MG Tab PO SCH (20:27)
[2016-12-03] MEDS: Levothyroxine 100 MCG Tab PO SCH (06:11)
[2016-12-03] MEDS: Carvedilol 6.25 MG Tab PO SCH (08:07)
[2016-12-03] MEDS: Loratadine 10 MG Tab PO SCH (08:08)
[2016-12-03] MEDS: Pregabalin 25 MG Cap PO SCH ×2 (08:08→13:19)
[2016-12-03] MEDS: Bumetanide 1 MG Tab PO SCH ×2 (08:08→13:19)
[2016-12-03] MEDS: Potassium Chloride 20 MEQ Tab.ER PO SCH (08:08)
[2016-12-03] MEDS: Fish Oil/Omega-3 Fatty Acids 1 Gm Cap PO SCH (08:08)
[2016-12-03] MEDS: Aspirin 81 MG Tab.EC PO SCH (08:08)
[2016-12-03] MEDS: Chondroitin/Glucosamine Cap PO SCH (08:08)
[2016-12-03] MEDS: Sertraline 50 MG Tab PO SCH (08:09)
[2016-12-03] MEDS: Clopidogrel 75 MG Tab PO SCH (08:09)
[2016-12-03] MEDS: Lutein/Minerals/Vitamins A, C & E Tab PO SCH (08:09)
[2016-12-03] MEDS: Lisinopril 5 MG Tab PO SCH (08:09)
[2016-12-03 08:14] VITALS: BP 112/50
--- NOTE | 2016-12-03 09:47 | PCM.DCSUM1 ---
Discharge Summary - Hospital Course Free Text/Narrative:: Kortney is being discharged from [facility] today. She was here 11/19/16 - 12/03/16 for rehab due to deconditioning after she suffered respiratory distress secondary to CHF exacerbation which was due to not taking meds as prescribed. She was intubated at an outside hospital. She is moving to [place] from [place]. She did will with PT. She is on chronic anticoagulation with warfarin due to a-fib. INR is therapeutic. She does take potassium 100 mEq daily and her potassium has been normal. She will be discharged to home on current meds. - Discharge Data Discharge Date: 12/03/16 Discharge Disposition: Home, Self-Care 01 Condition: Good - Discharge Diagnosis/Problem(s) (1) Physical deconditioning SNOMED Code(s): 52224217941667 ICD Code: R53.81 - OTHER MALAISE Status: Acute Current Visit: Yes (2) Congestive heart failure SNOMED Code(s): 10557491 ICD Code: I50.9 - HEART FAILURE, UNSPECIFIED Status: Acute Current Visit : Yes (3) Hypertension SNOMED Code(s): 67832294 ICD Code: I10 - ESSENTIAL (PRIMARY) HYPERTENSION Status: Acute Current Visit: Yes (4) Chronic anticoagulation SNOMED Code(s): 570894201 ICD Code: Z79.01 - CUSTODIAL (CURRENT) USE OF ANTICOAGULANTS Status: Acute Current Visit: Yes (5) Arthritis SNOMED Code(s): 8234045, 336941412 ICD Code: M19.90 - UNSPECIFIED OSTEOARTHRITIS, UNSPECIFIED SITE Status: Acute Current Visit: Yes - Patient Summary/Data Consults: Consultations 11/19/16 17:55 Consult to Physical Therapy [PT Evaluation and Treatment] [CONS] Routine 11/19/16 20:13 Consult to Speech Language Pathology [DISCHARGE COORDINATOR Evaluation and Treatment] [CONS] Routine 11/20/16 13:32 Consult to Dietary [Consult to Engineering Professor] [CONS] Routine - Patient Instructions Diet: Low Sodium, Mechanical Soft Activity: As Tolerated - Discharge Plan Prescriptions/Med Rec: Warfarin [Coumadin] 2.5 mg PO SuMoWeFrSa@1800 30 Days Warfarin [Coumadin] 5 mg PO DAILY@1800 30 Days Home Medications: Home Meds Levothyroxine [Synthroid] 100 mcg PO ACBRK 04/29/13 [History] Multivitamin [Multi-Vitamin Daily] 1 each PO DAILY 04/29/13 [History] Dutton-3 Fatty Acids [Dutton-3] 1,000 mg PO BID 04/29/13 [History] Bumetanide [Bumex] 1 tab PO BID@0800,1400 06/17/14 [History] Sertraline [Zoloft] 100 mg PO DAILY 02/14/15 [History] Gluc 2KCl/Chondr/Lavelle Hy/Hy Ac [Glucosamine & Chondroitin Cap] 1 each PO DAILY 02/02/16 [History] Rosuvastatin Calcium [Crestor] 5 mg PO BEDTIME 02/02/16 [History] Albuterol [IJD: Albuterol HFA] 2 puff INH Q4H PRN 10/30/16 [History] Lutein/Minerals/Vit A,C & E [Ocuvite] 1 tab PO DAILY 10/30/16 [History] Potassium Chloride [Klor-Con M20] 40 meq PO DAILY@1800 10/30/16 [History] Potassium Chloride [Klor-Con M20] 60 meq PO DAILY 10/30/16 [History] Pregabalin [Lyrica] 100 mg PO TID 10/30/16 [History] Acetaminophen [Tylenol] 650 mg PO Q6H PRN 11/19/16 [History] Albuterol/Ipratropium [DuoNeb 3.0-0.5 MG/3 ML] 3 ml NEB Q4HRRT PRN 11/19/16 [ History] Aspirin [Halfprin] 81 mg PO BRK 11/19/16 [History] Carvedilol [Coreg] 3.125 mg PO BID 11/19/16 [History] Clopidogrel [Plavix] 75 mg PO DAILY 11/19/16 [History] Glucagon,Human Recombinant [Glucagon Emergency Kit] 1 mg IJ PRN 11/19/16 [ History] Hydrocortisone [Anusol-HC] 1 applic RECTAL BID 11/19/16 [History] Lisinopril [Prinivil] 2.5 mg PO DAILY 11/19/16 [History] Loratadine [Claritin] 10 mg PO DAILY 11/19/16 [History] Methyl Salicylate/Menthol [Cool Heat] 35 gm TP PRN 11/19/16 [History] Nystatin 15 gm TP TID 11/19/16 [History] Sennosides/Docusate Sodium [Senna-Docusate Sodium] 1 tab PO DAILY PRN 11/19/16 [ History] Warfarin [Coumadin] 2.5 mg PO SuMoWeFrSa@1800 30 Days 12/03/16 [Rx] Warfarin [Coumadin] 5 mg PO DAILY@1800 30 Days 12/03/16 [Rx] - Discharge Summary/Plan Comment DC Time >30 min.: No - General Info Date of Service: 12/03/16 - Patient Data Vitals - Most Recent: Last Vital Signs Temp 96.9 F 12/03/16 06:24 Pulse 74 12/03/16 08:07 Resp 20 12/03/16 06:24 BP 112/50 L 12/03/16 08:09 Pulse Ox 93 L 12/03/16 06:24 Weight - Most Recent: 177 lb 9 oz I&O - Last 24 hours: Intake & Output 12/02/16 12/03/16 12/03/16 22:59 06:59 14:59 Intake Total 1400 150 Balance 1400 150 Lab Results - Last 24 hrs: Laboratory Results - last 24 hr 12/03/16 Range/Units 07:30 INR 2.8 H (0.9-1.1) Med Orders - Current: Current Medications Acetaminophen (Tylenol) 650 mg PO Q6H PRN PRN Reason: Pain Last Admin: 12/02/16 19:31 Dose: 650 mg Albuterol (Ventolin Hfa) 0 gm INH Q4H PRN PRN Reason: Shortness of Breath Albuterol/Ipratropium (Duoneb 3.0-0.5 Mg/3 Ml) 3 ml NEB Q4HRRT PRN PRN Reason: Shortness of Breath Aspirin (Halfprin) 81 mg PO BRK [facility] Last Admin: 12/03/16 08:08 Dose: 81 mg Bumetanide (Bumex) 1 mg PO 0800,1400 [facility] Last Admin: 12/03/16 08:08 Dose: 1 mg Carvedilol (Coreg) 3.125 mg PO BIDMEALS [facility] Last Admin: 12/03/16 08:07 Dose: 3.125 mg Clopidogrel Bisulfate (Plavix) 75 mg PO DAILY [facility] Last Admin: 12/03/16 08:09 Dose: 75 mg Fish Oil (Fish Oil) 1 gm PO BID [facility] Last Admin: 12/03/16 08:08 Dose: 1 gm Glucosamine/Chondroitin (Glucosamine-Chondroitin 500-400 Capsule) 2 cap PO DAILY [facility] Last Admin: 12/03/16 08:08 Dose: 2 cap Hydrocortisone (Proctozone-Hc 2.5% Crm) 0 gm TOP BID [facility] Last Admin: 12/02/16 20:28 Dose: 1 applic Levothyroxine Sodium (Synthroid) 100 mcg PO ACBRK [facility] Last Admin: 12/03/16 06:11 Dose: 100 mcg Lisinopril (Prinivil) 2.5 mg PO DAILY [facility] Last Admin: 12/03/16 08:09 Dose: 2.5 mg Loratadine (Claritin) 10 mg PO DAILY [facility] Last Admin: 12/03/16 08:08 Dose: 10 mg Magnesium Hydroxide (Milk Of Magnesia) 30 ml PO DAILY PRN PRN Reason: Constipation Multivitamins/Minerals (Centrum) 1 tab PO BEDTIME [facility] Last Admin: 12/02/16 20:27 Dose: 1 tab Multivitamins/Minerals (Ocuvite) 1 each PO DAILY [facility] Last Admin: 12/03/16 08:09 Dose: 1 each Nystatin (Nystop) 0 gm TOP TID [facility] Last Admin: 12/02/16 20:28 Dose: 1 applic Potassium Chloride (Klor-Con M20) 40 meq PO DAILY@1800 [facility] Last Admin: 12/02/16 17:35 Dose: 40 meq Potassium Chloride (Klor-Con M20) 60 meq PO DAILY [facility] Last Admin: 12/03/16 08:08 Dose: 60 meq Pregabalin (Lyrica) 100 mg PO TID [facility] Last Admin: 12/03/16 08:08 Dose: 100 mg Rosuvastatin Calcium (Crestor) 5 mg PO BEDTIME [facility] Last Admin: 12/02/16 20:27 Dose: 5 mg Senna/Docusate Sodium (Senna Plus) 1 tab PO DAILY PRN PRN Reason: Constipation Sertraline HCl (Zoloft) 100 mg PO DAILY [facility] Last Admin: 12/03/16 08:09 Dose: 100 mg Warfarin Sodium (Coumadin) 5 mg PO DAILY@1800 [facility] Last Admin: 12/02/16 17:35 Dose: 5 mg Warfarin Sodium (Coumadin) 2.5 mg PO SuMoWeFrSa@1800 [facility] Last Admin: 12/02/16 17:35 Dose: 2.5 mg Discontinued Medications Atropine Sulfate (Atropine 0.1 Mg/Ml) 0 mg IVPUSH ASDIRECTED PRN PRN Reason: Heart Bumetanide (Bumex) 1 mg PO BIDDIURETIC [facility] Last Admin: 11/26/16 17:48 Dose: Not Given Diltiazem HCl (Cardizem Cd) 120 mg PO DAILY [facility] Last Admin: 11/21/16 08:43 Dose: Not Given Epinephrine HCl (Epinephrine 1:10,000) 1 mg IVPUSH ASDIRECTED PRN PRN Reason: Heart Vancomycin HCl 1 gm/ Sodium (Chloride) 270 mls @ 180 mls/hr IV Q12H [facility] Last Admin: 11/23/16 07:34 Dose: Not Given Vancomycin HCl 1 gm/ Sodium (Chloride) 270 mls @ 180 mls/hr IV Q12H [facility] Stop: 11/29/16 06:01 Last Admin: 11/24/16 07:22 Dose: Not Given Sodium Chloride (Normal Saline) 50 mls @ 50 mls/hr IV DAILY@1800 [facility] Vancomycin HCl 1 gm/ Sodium (Chloride) 270 mls @ 180 mls/hr IV Q12H [facility] Stop: 11/29/16 07:01 Last Admin: 11/27/16 11:29 Dose: Not Given Sodium Chloride (Normal Saline) 50 mls @ 50 mls/hr IV DAILY@1900 [facility] Last Admin: 11/27/16 18:07 Dose: Not Given Vancomycin HCl 1 gm/ Sodium (Chloride) 270 mls @ 180 mls/hr IV Q12H [facility] Stop: 11/29/16 12:00 Last Admin: 11/29/16 10:59 Dose: 180 mls/hr Sodium Chloride (Normal Saline) 50 mls @ 50 mls/hr IV DAILY@2130 [facility] Last Admin: 11/29/16 21:31 Dose: Not Given Lidocaine HCl (Xylocaine 2%) 0 mg IVPUSH ASDIRECTED PRN PRN Reason: Heart Nitroglycerin (Nitrostat) 0.4 mg SL ASDIRECTED PRN PRN Reason: Heart Sodium Chloride (Saline Flush) 10 ml IV Q12H [facility] Last Admin: 11/24/16 08:25 Dose: Not Given Sodium Chloride (Saline Flush) 10 ml IV Q12H [facility] Last Admin: 11/28/16 09:29 Dose: Not Given Sodium Chloride (Saline Flush) 10 ml IV Q12H [facility] Last Admin: 11/30/16 11:00 Dose: Not Given Vancomycin HCl (Pharmacy To Dose - Vancomycin) 1 dose .XX ASDIRECTED [facility] Warfarin Sodium (Coumadin) 5 mg PO ONETIME ONE Stop: 11/19/16 18:01 Last Admin: 11/19/16 19:35 Dose: 5 mg Warfarin Sodium (Coumadin) 2.5 mg PO TuThSa@1800 [facility] Last Admin: 11/22/16 18:03 Dose: 2.5 mg - Exam General: Reports: alert, oriented, cooperative, no acute distress Lungs: Reports: Clear to auscultation, Normal respiratory effort Cardiovascular: Reports: No Murmurs, Irregular Rhythm Abdomen: Reports: bowel sounds present *Q Meaningful Use (DIS) - VTE *Q VTE Criteria *Q: - Stroke *Q Stroke Criteria *Q: - AMI *Q AMI Criteria *Q:
[2016-12-03] MEDS: Hydrocortisone 2.5% Crm 30 GM Tube TOP SCH (10:09)
[2016-12-03] MEDS: Nystatin Topical Powder 15 GM Bottle TOP SCH ×2 (10:10→13:17)
== END 2016-12-03 15:10 | disposition home or self-care (01) | DRG 948 ==
LOC: KA.MS 16:53
PROVIDERS: ADMIT Internal Medicine; ATTEND Internal Medicine
DX: R53.81 Other malaise (principal); I50.20 Unspecified systolic (congestive) heart failure; I48.91 Unspecified atrial fibrillation; I10 Essential (primary) hypertension; M19.90 Unspecified osteoarthritis, unspecified site; E03.9 Hypothyroidism, unspecified; I25.10 Atherosclerotic heart disease of native coronary artery without angina pectoris; E78.00 Pure hypercholesterolemia, unspecified; G62.9 Polyneuropathy, unspecified; E87.6 Hypokalemia; F32.9 Major depressive disorder, single episode, unspecified; Z79.01 Long term (current) use of anticoagulants; Z79.899 Other long term (current) drug therapy; Z95.5 Presence of coronary angioplasty implant and graft; Z88.0 Allergy status to penicillin; Z88.8 Allergy status to other drugs, medicaments and biological substances; L98.419 Non-pressure chronic ulcer of buttock with unspecified severity
CPT/HCPCS: 36415; 36416; 71010; 80048; 80053; 80202; 83880; 85025; 85610; 87070; 87077; 87186; 92526-GN; 92610-GN; 97110-GP; 97162-GP; A9270-GY; J3370; J7050

== ENCOUNTER 2016-12-12 17:00 | Observation (INO) | payer MEDICARE, BC ==
--- NOTE | 2016-12-12 17:49 | EDM.PDOC ---
Addendum entered and electronically signed by Richi Fuentes PA 12/13/16 11:59 : PLEASE USE ER ADMISSION H&P Original Note: ED HPI GENERAL MEDICAL PROBLEM - General Chief Complaint: General Stated Complaint: LOW HGB Time Seen by Provider: 12/12/16 17:27 Source of Information: Reports: Patient History Limitations: Reports: No Limitations - History of Present Illness INITIAL COMMENTS - FREE TEXT/NARRATIVE: PT STATES SHE WAS CONTACTED BY HER PRIMARY DOCTOR IN [place] AND TOLD THAT RECENT LAB VALUE SHOWED HEMOGLOBIN OF 6.0. ADVISED HER TO BE SEEN IN ER. ADMITS TO WEAKNESS BUT OF CHRONIC NATURE. DENIES SOB, CP, ABD PAIN, MUSCLE WEAKNESS OR CRAMPING, CHANGE IN DIET OR MEDICATION. Onset: Today Improves with: Reports: None Worsens with: Reports: None Associated Symptoms: Reports: Weakness. Denies: Chest Pain, Diaphoresis, Shortness of Breath - Related Data Allergies Allergy/AdvReac Type Severity Reaction Status Date / Time propoxyphene HCl Allergy Unknown Rash Verified 12/12/16 17:58 [From Darvon] cat dander Allergy Cannot Verified 12/12/16 17:58 Remember cephalexin [From Keflex] Allergy Stomach Verified 12/12/16 17:58 Upset furosemide [From Lasix] Allergy Dizziness Verified 12/12/16 17:58 Penicillins Allergy Cannot Verified 12/12/16 17:58 Remember propoxyphene napsylate Allergy Rash Verified 12/12/16 17:58 [From Darvocet-N 100] acetaminophen AdvReac Mild Cannot Verified 12/12/16 17:58 [From Darvocet-N 100] Remember ENVIRONMENTAL Allergy Cannot Uncoded 11/19/16 17:32 Remember Home Meds: Home Meds Levothyroxine [Synthroid] 100 mcg PO ACBRK 04/29/13 [History] Multivitamin [Multi-Vitamin Daily] 1 each PO DAILY 04/29/13 [History] [place]-3 Fatty Acids [[place]-3] 1,000 mg PO BID 04/29/13 [History] Bumetanide [Bumex] 1 tab PO BID@0800,1400 06/17/14 [History] Sertraline [Zoloft] 100 mg PO DAILY 02/14/15 [History] Gluc 2KCl/Chondr/Lavelle Hy/Hy Ac [Glucosamine & Chondroitin Cap] 1 each PO DAILY 02/02/16 [History] Rosuvastatin Calcium [Crestor] 5 mg PO BEDTIME 02/02/16 [History] Albuterol [IJD: Albuterol HFA] 2 puff INH Q4H PRN 10/30/16 [History] Lutein/Minerals/Vit A,C & E [Ocuvite] 1 tab PO DAILY 10/30/16 [History] Potassium Chloride [Klor-Con M20] 40 meq PO DAILY@1800 10/30/16 [History] Potassium Chloride [Klor-Con M20] 60 meq PO DAILY 10/30/16 [History] Pregabalin [Lyrica] 100 mg PO TID 10/30/16 [History] Acetaminophen [Tylenol] 650 mg PO Q6H PRN 11/19/16 [History] Albuterol/Ipratropium [DuoNeb 3.0-0.5 MG/3 ML] 3 ml NEB Q4HRRT PRN 11/19/16 [ History] Aspirin [Halfprin] 81 mg PO BRK 11/19/16 [History] Carvedilol [Coreg] 3.125 mg PO BID 11/19/16 [History] Clopidogrel [Plavix] 75 mg PO DAILY 11/19/16 [History] Glucagon,Human Recombinant [Glucagon Emergency Kit] 1 mg IJ PRN 11/19/16 [ History] Hydrocortisone [Anusol-HC] 1 applic RECTAL BID 11/19/16 [History] Lisinopril [Prinivil] 2.5 mg PO DAILY 11/19/16 [History] Loratadine [Claritin] 10 mg PO DAILY 11/19/16 [History] Methyl Salicylate/Menthol [Cool Heat] 35 gm TP PRN 11/19/16 [History] Nystatin 15 gm TP TID 11/19/16 [History] Sennosides/Docusate Sodium [Senna-Docusate Sodium] 1 tab PO DAILY PRN 11/19/16 [ History] Warfarin [Coumadin] 2.5 mg PO SuMoWeFrSa@1800 30 Days 12/03/16 [Rx] Warfarin [Coumadin] 5 mg PO DAILY@1800 30 Days 12/03/16 [Rx] Past Medical History HEENT History: Reports: Cataract, Impaired Vision Cardiovascular History: Reports: Afib, Arrhythmia, Blood Clots/VTE/DVT, Hypertension, [place], Stents Other Cardiovascular History: recent stents placed before admission Respiratory History: Reports: Asthma, Intubation, Previous Gastrointestinal History: Reports: Hemorrhoids Genitourinary History: Reports: None [employer] History: Reports: Musculoskeletal History: Reports: Arthritis Other Musculoskeletal History: arthropathy of lumbar facet joint,spinal stenosis of lumbar region,discogenic low back pain,DJD Neurological History: Reports: Neuropathy, Peripheral Other Neuro History: PVD Psychiatric History: Reports: Depression Endocrine/Metabolic History: Reports: Hypothyroidism Hematologic History: Reports: Blood Transfusion(s), Other (See Below) Other Hematologic History: Has been on coumadin and bruises easily. Dermatologic History: Reports: Eczema - Infectious Disease History Infectious Disease History: Reports: Chicken Pox, Influenza, Measles, Mumps, Rubella - Past Surgical History Head Surgeries/Procedures: Reports: None HEENT Surgical History: Reports: Cataract Surgery Cardiovascular Surgical History: Reports: Coronary Artery Stent GI Surgical History: Reports: Cholecystectomy, Colonoscopy, EGD Female Surgical History: Reports: Hysterectomy, Salpingo-Oophorectomy, Tubal Ligation Musculoskeletal Surgical History: Reports: Other (See Below) Other Musculoskeletal Surgeries/Procedures:: Left ankle surgery Dermatological Surgical History: Reports: None Social & Family History - Family History Family Medical History: Noncontributory - Tobacco Use Smoking Status *Q: Never Smoker Used Tobacco, but Quit: No Second Hand Smoke Exposure: Yes - Caffeine Use Caffeine Use: Reports: Coffee, Soda, Tea - Alcohol Use Days Per Week of Alcohol Use: 0 - Recreational Drug Use Recreational Drug Use: No ED ROS GENERAL - Review of Systems Review Of Systems: ROS reveals no pertinent complaints other than HPI. Constitutional: Reports: Weakness (OF CHRONIC NATURE) HEENT: Reports: No Symptoms Respiratory: Reports: No Symptoms. Denies: Shortness of Breath Cardiovascular: Reports: No Symptoms. Denies: Chest Pain Endocrine: Reports: No Symptoms GI/Abdominal: Reports: No Symptoms, Other (THINKS SHE HAS DARK STOOLS) : Reports: No Symptoms Musculoskeletal: Reports: No Symptoms Skin: Reports: No Symptoms Neurological: Reports: No Symptoms Psychiatric: Reports: No Symptoms Hematologic/Lymphatic: Reports: Anemia Immunologic: Reports: No Symptoms ED EXAM, GENERAL - Physical Exam Exam: See Below Exam Limited By: No Limitations General Appearance: Alert, WD/WN, No Apparent Distress Eye Exam: Bilateral Eye: Normal Inspection Nose: Normal Inspection, No Blood Throat/Mouth: Normal Inspection, Normal Gums, Normal Oropharynx, No Airway Compromise Head: Atraumatic, Normocephalic Neck: Normal Inspection Respiratory/Chest: No Respiratory Distress, Lungs Clear, Normal Breath Sounds, Chest Non-Tender Cardiovascular: Regular Rate, Rhythm, No Murmur GI/Abdominal: Normal Bowel Sounds, Soft, Non-Tender, No Organomegaly, No Distention, No Abnormal Bruit, No Mass Back Exam: Normal Inspection. No: CVA Tenderness (L), CVA Tenderness (R) Extremities: Normal Inspection Neurological: Alert, Oriented, Normal Cognition, No Motor/Sensory Deficits Psychiatric: Normal Affect, Normal Mood Skin Exam: Warm, Dry, Intact, Normal Color, No Rash Lymphatic: No Adenopathy Course - Orders/Labs/Meds Orders: Active Orders 24 hr Category Date Time Status BASIC METABOLIC PANEL,BMP [CHEM] Stat Lab 12/12/16 17:42 Ordered - Re-Assessments/Exams Free Text/Narrative Re-Assessment/Exam: 12/12/16 18:27 PT AFEBRILE, NONTOXIC APPEARING, VSS. SEEN BY DR SCHMITT IN ER. WILL ADMIT OBS FOR TRANSFUSION Departure - Departure Time of Disposition: 18:29 Disposition: Refer to Observation Condition: Fair Clinical Impression: Anemia Qualifiers: Anemia type: unspecified type Qualified Code(s): D64.9 - Anemia, unspecified - Discharge Information - My Orders Last 24 Hours: My Active Orders 12/12/16 17:42 BASIC METABOLIC PANEL,BMP [CHEM] Stat - Assessment/Plan Last 24 Hours: My Active Orders 12/12/16 17:42 BASIC METABOLIC PANEL,BMP [CHEM] Stat Assessment:: ANEMIA Plan: ADMIT TO OBSERVATION FOR TRANSFUSION
[2016-12-12 18:04] LABS: CHLORIDE,CL 104 mmol/L (98-115); SODIUM,NA 139 mmol/L (136-145)
[2016-12-12] MEDS ORDERED: ALBUTEROL INH PRN (20:21)
[2016-12-12] MEDS ORDERED: IPRATROPIUM NEB PRN (20:21)
[2016-12-12] MEDS ORDERED: Patient's Own Medication 1 Each TOP PRN (20:21)
[2016-12-12] MEDS ORDERED: ALBUTEROL NEB PRN (20:21)
[2016-12-12] MEDS ORDERED: Acetaminophen 325 MG Tab PO PRN (20:21)
[2016-12-12] MEDS ORDERED: LORATADINE 10 MG PO PRN (20:45)
[2016-12-13] MEDS: LEVOTHYROXINE 100 MCG PO SCH (06:25)
[2016-12-13] MEDS: Nystatin Topical Powder 15 GM Bottle TOP SCH ×3 (06:59→20:41)
[2016-12-13] MEDS: Hydrocortisone 2.5% Crm 30 GM Tube TOP SCH ×3 (06:59→20:42)
[2016-12-13 07:40] LABS: CHLORIDE,CL 105 mmol/L (98-115); SODIUM,NA 141 mmol/L (136-145)
[2016-12-13] MEDS: [UNRECOGNIZED DRUG - OTHER] PO SCH (08:51)
[2016-12-13] MEDS: MINERALS PO SCH (08:51)
[2016-12-13] MEDS: LUTEIN PO SCH (08:51)
[2016-12-13] MEDS: SERTRALINE 100 MG PO SCH (08:52)
[2016-12-13] MEDS: LISINOPRIL 2.5 MG PO SCH (08:53)
[2016-12-13] MEDS: GLUCOSAMINE PO SCH (08:54)
[2016-12-13] MEDS: CHONDROITIN PO SCH (08:54)
[2016-12-13] MEDS: SALMON OIL 1000 MG PO SCH ×2 (08:54→20:39)
[2016-12-13] MEDS: POTASSIUM CHLORIDE 20 MEQ PO SCH (08:55)
[2016-12-13] MEDS: CARVEDILOL 3.125 MG PO SCH ×2 (08:55→20:39)
[2016-12-13] MEDS: BUMETANIDE 1 MG PO SCH ×2 (08:56→14:12)
[2016-12-13] MEDS: Pregabalin 25 MG Cap PO SCH ×3 (11:29→20:40)
[2016-12-13] MEDS: Multivitamins with Minerals/Iron/Folic Acid/Lycopene Tab PO SCH (11:29)
[2016-12-13] MEDS: Furosemide 40 MG/4 ML VIAL IVPUSH ONE ×2 (13:44→13:45)
[2016-12-13] MEDS ORDERED: Potassium Chloride 20 MEQ Tab.ER PO ONE (14:05)
--- NOTE | 2016-12-13 15:59 | PN ---
12/13/2016PATIENT NAME: LISA JARA SUBJECTIVE: This is an 81-year-old female who was admitted yesterday with anemia. The patient states she was contacted by her doctor in [place] and told that recent lab values showed a hemoglobin of 6.0. She was advised to be seen in the [facility] Emergency Room and admitted for blood transfusion. The patient was discharged from the [facility] a couple of weeks ago. She was admitted to the hospital for swing bed after an extended hospital stay. Brief review of condition, she was scheduled for a left knee arthroplasty and was being bridged with Lovenox. She was taking Coumadin for chronic atrial fibrillation, but was bridged with Lovenox prior to her surgery. She developed a hematoma in the left side of her abdomen, and was seen in the emergency room for this as well as just overall general feeling of not feeling well. She decompensated from a respiratory standpoint and ended up being transferred to [facility] in [place]. During her hospitalization, she did have coronary artery stenting as well. She has a history of hypothyroidism and is on thyroid replacement. She has a history of depression and is on sertraline. She has a history of hypercholesterolemia as well as coronary artery disease, and is taking Crestor. She has a history of COPD with CHF as well and is receiving albuterol treatments. She has a history of hypokalemia and is taking a potassium supplement. She has a history of peripheral neuropathy, not related to diabetes, and is taking Lyrica. She is on a daily aspirin regimen. She has a history of artery disease and is on carvedilol as well as Plavix as well as warfarin. She has been taking warfarin on a long-term basis for atrial fibrillation. She has a history of hypertension, for which she is taking lisinopril. The patient denies any complaints. She is not complaining of any shortness of breath. She did receive 1 unit of blood yesterday, however, two were ordered. Apparently, there is some shortage of the amount of units of blood that are kept in the hospital. Her initial hemoglobin was. 5.9, and has improved to 6.9 today after 1 unit. Plan today is for her to receive two more units of blood and received 20 mg of Lasix between the units. OBJECTIVE: VITAL SIGNS: Temperature is 97.9, pulse 71, respirations 18, blood pressure 114/42, oxygen saturation is 99% on room air. SKIN: Somewhat grayish, pale in color. Warm and dry to touch. CARDIAC: Reveals S1, S2 to be normal. Rate and rhythm are regular. No murmur, click, or gallop is auscultated. LUNGS: Clear without rales, wheezes, or rhonchi. EXTREMITIES: She does have some mild pedal edema. IMPRESSION AND PLAN: Anemia, requiring blood transfusion. She will receive 2 units of packed RBCs today in addition to the one that she received yesterday. She will get 20 mg of Lasix between the units. She does have a very complicated past medical history, with a recent long-term hospital stay and swing bed stay. This has been outlined in the HPI. /[id number]/MODL
[2016-12-13] MEDS ORDERED: POTASSIUM CHLORIDE 20 MEQ PO SCH (18:00)
[2016-12-13] MEDS ORDERED: ROSUVASTATIN CALCIUM 5 MG PO SCH (21:00)
[2016-12-14] MEDS: LEVOTHYROXINE 100 MCG PO SCH (06:12)
[2016-12-14 06:47] VITALS: BP 113/48
[2016-12-14] MEDS: [UNRECOGNIZED DRUG - OTHER] PO SCH (08:15)
[2016-12-14] MEDS: MINERALS PO SCH (08:15)
[2016-12-14] MEDS: LUTEIN PO SCH (08:15)
[2016-12-14] MEDS: Nystatin Topical Powder 15 GM Bottle TOP SCH (08:15)
[2016-12-14] MEDS: CHONDROITIN PO SCH (08:16)
[2016-12-14] MEDS: GLUCOSAMINE PO SCH (08:16)
[2016-12-14] MEDS: BUMETANIDE 1 MG PO SCH (08:17)
[2016-12-14] MEDS: Hydrocortisone 2.5% Crm 30 GM Tube TOP SCH (08:17)
[2016-12-14] MEDS: POTASSIUM CHLORIDE 20 MEQ PO SCH (08:19)
[2016-12-14] MEDS: SALMON OIL 1000 MG PO SCH (08:20)
[2016-12-14] MEDS: Multivitamins with Minerals/Iron/Folic Acid/Lycopene Tab PO SCH (08:20)
[2016-12-14] MEDS: CARVEDILOL 3.125 MG PO SCH (08:20)
[2016-12-14] MEDS: Pregabalin 25 MG Cap PO SCH (08:21)
[2016-12-14] MEDS: LISINOPRIL 2.5 MG PO SCH (08:21)
[2016-12-14] MEDS: SERTRALINE 100 MG PO SCH (08:22)
[2016-12-14 08:25] LABS: CHLORIDE,CL 106 mmol/L (98-115); SODIUM,NA 142 mmol/L (136-145)
--- NOTE | 2016-12-14 09:10 | PN ---
12/13/2016PATIENT NAME: LISA JARA This is an 81-year-old female, who was admitted through the emergency room yesterday for anemia and is receiving blood transfusions. I contacted Gastroenterology at [facility] in [place]. I talked to Dr. Castano, who is the head of Gastroenterology there. She has been taken off all of her anticoagulants secondary to the GI bleed. They are able to do both upper and lower GI endoscopies on Saturday, 12/17. She will continue to be off all anticoagulation until that time. She has received Lovenox in the past and is resistant to using it again due to the fact that she developed a large hematoma in her abdomen from prior use. At this point, the GI bleed poses more of a risk than clotting. She is aware of all of this as we did discuss it at great length. Her potassium on admission was 3.1. She does receive 100 mEq of potassium daily orally. 20 mEq tablet she takes 3 in the morning and 2 at night. She did not receive her evening dose of potassium last evening due to the confusion of her being admitted to the hospital. I ordered a one-time dose of 60 mEq to be given this afternoon, and then she will still receive her scheduled 20 mEq later this evening. She has already had 60 mEq this morning, so her total dose of potassium today will be 160 mEq, and she does have repeat lab work ordered for morning to include a CBC and a CMP. Plan for this patient includes discharge home over the weekend and outpatient upper and lower endoscopy on Saturday at [facility] with Dr. England. /[id number]/MODL
--- NOTE | 2016-12-14 09:36 | PCM.DCSUM1 ---
Discharge Summary - Hospital Course Free Text/Narrative:: Kortney is being discharged today from observation stay. She was admitted on the evening of 12/12/16 with anemia. She had been at an appointment in [place] and had blood drawn. They called and told her to be evaluated due to Hgb of 5.9 (6 with recheck on admission). She had been feeling "run down". She had also noted her stools had been a little more dark black recently. No vomiting or hematemesis, no BRBPR. She was admitted, received 1 unit PRBC's that evening and then on 12/13/16 she received additional 2 units PRBC's with lasix 20 mg IV in between. She had no SOB, no evidence of CHF exacerbation. Hemoccult was positive. She is scheduled for upper and lower GI endoscopy on Saturday (12/17/16) at [facility] in [place]. All her anticoagulation is being held. This includes warfarin (a-fib), plavix (COREEN placement 1 month ago) and ASA. I am waiting for a call back from [facility] cardiology to discuss with them holding the plavix given her recent stent placement. I talked with Kortney about the risks of holding her anticoagulation which include stroke and [place]. She understands these risks and wants to proceed with holding them until after her scopes. I want her to come in on Saturday for a repeat CBC. She was as high as 10.5 but was 9.1 this morning. No evidence of brisk bleeding at this time. INR was 1.4 yesterday. She would not be able to be in anticoagulation for her procedures either way. She is discharged to home with follow-up on 12/17/16 for her scopes. The only medication changes involve holding all blood thinning products. - Discharge Data Discharge Date: 12/14/16 Discharge Disposition: Home, W Home Health Agency 06 Condition: Good - Discharge Diagnosis/Problem(s) (1) GI bleed SNOMED Code(s): 56682038 ICD Code: K92.2 - GASTROINTESTINAL HEMORRHAGE, UNSPECIFIED Status: Acute Current Visit: Yes (2) Anemia SNOMED Code(s): 454804418 ICD Code: D64.9 - ANEMIA, UNSPECIFIED Status: Acute Current Visit: Yes Qualifiers: Anemia type: unspecified type Qualified Code(s): D64.9 - Anemia, unspecified (3) Afib, Atrial fibrillation and flutter SNOMED Code(s): 975771936 ICD Code: I48.91 - UNSPECIFIED ATRIAL FIBRILLATION; I48.92 - UNSPECIFIED ATRIAL FLUTTER Status: Acute Current Visit: No (4) Congestive heart failure SNOMED Code(s): 45928482 ICD Code: I50.9 - HEART FAILURE, UNSPECIFIED Status: Acute Current Visit : No (5) Hypertension SNOMED Code(s): 90734091 ICD Code: I10 - ESSENTIAL (PRIMARY) HYPERTENSION Status: Acute Current Visit: No - Patient Summary/Data Recommended Follow-up Testing/Procedures: CBC on 12/16/16 Planned Operative Procedure(s) after DC: Upper and lower GI endoscopy at . - Patient Instructions Activity: As Tolerated Other/Special Instructions: Present to ER if any bright red blood per rectum or vomiting blood. Also if any chest pain, shortness of breath, dizziness. - Discharge Plan Home Medications: Home Meds Levothyroxine [Synthroid] 100 mcg PO ACBRK 04/29/13 [History] Multivitamin [Multi-Vitamin Daily] 1 each PO DAILY 04/29/13 [History] Bumetanide [Bumex] 1 mg PO BID@0800,1400 06/17/14 [History] Sertraline [Zoloft] 100 mg PO DAILY 02/14/15 [History] Gluc 2KCl/Chondr/[place] Hy/Hy Ac [Glucosamine & Chondroitin Cap] 1 each PO DAILY 02/02/16 [History] Rosuvastatin Calcium [Crestor] 5 mg PO BEDTIME 02/02/16 [History] Albuterol [IJD: Albuterol HFA] 2 puff INH Q4H PRN 10/30/16 [History] Lutein/Minerals/Vit A,C & E [Ocuvite] 1 tab PO DAILY 10/30/16 [History] Potassium Chloride [Klor-Con M20] 40 meq PO DAILY@1800 10/30/16 [History] Potassium Chloride [Klor-Con M20] 60 meq PO DAILY 10/30/16 [History] Pregabalin [Lyrica] 100 mg PO TID 10/30/16 [History] Acetaminophen [Tylenol] 650 mg PO Q6H PRN 11/19/16 [History] Albuterol/Ipratropium [DuoNeb 3.0-0.5 MG/3 ML] 3 ml NEB Q4HRRT PRN 11/19/16 [ History] Carvedilol [Coreg] 3.125 mg PO BID 11/19/16 [History] Hydrocortisone [Anusol-HC] 1 applic RECTAL BID 11/19/16 [History] Lisinopril [Prinivil] 2.5 mg PO DAILY 11/19/16 [History] Loratadine [Claritin] 10 mg PO DAILY PRN 11/19/16 [History] Methyl Salicylate/Menthol [Cool Heat] 35 gm TP DAILY PRN 11/19/16 [History] Nystatin 15 gm TP BID 11/19/16 [History] Sennosides/Docusate Sodium [Senna-Docusate Sodium] 1 tab PO DAILY PRN 11/19/16 [ History] Hydrocortisone Acetate [Anusol-Hc] 25 mg RC DAILY PRN 12/13/16 [History] Referrals: Sylvia Clayton MD [Primary Care Provider] - - Discharge Summary/Plan Comment DC Time >30 min.: No - General Info Date of Service: 12/14/16 - Patient Data Vitals - Most Recent: Last Vital Signs Temp 97.5 F 12/14/16 06:44 Pulse 72 12/14/16 06:44 Resp 20 12/14/16 06:44 BP 113/48 L 12/14/16 06:44 Pulse Ox 93 L 12/14/16 06:44 Weight - Most Recent: 179 lb 1 oz I&O - Last 24 hours: Intake & Output 12/13/16 12/14/16 12/14/16 22:59 06:59 14:59 Intake Total 1346 300 Output Total 2700 300 Balance -1354 0 Lab Results - Last 24 hrs: Laboratory Results - last 24 hr 12/13/16 12/13/16 12/14/16 Range/Units 21:00 21:00 07:10 WBC 7.5 (5.0-10.0) 10^3/uL RBC 3.15 L (3.80-5.50) 10^6/uL Hgb 10.5 L 9.1 L (12.0-16.0) g/dL Hct 28.1 L (37.0-47.0) % MCV 89.1 (82.0-92.0) fL MCH 28.7 (27.0-31.0) pg MCHC 32.2 (32.0-36.0) g/dL RDW 15.9 H (11.5-14.5) % Plt Count 243 (150-300) 10^3/uL MPV 6.9 L (7.4-10.4) fL Neut % (Auto) 53.5 (50.0-70.0) % Lymph % (Auto) 30.1 (20.0-40.0) % [place] % (Auto) 12.7 H (2.0-8.0) % Eos % (Auto) 2.6 (1.0-3.0) % Baso % (Auto) 1.1 H (0.0-1.0) % Neut # (Auto) 3.9 (2.5-7.0) 10^3/uL Lymph # (Auto) 2.3 (1.0-4.0) 10^3/uL [place] # (Auto) 1.0 H (0.1-0.8) 10^3/uL Eos # (Auto) 0.2 (0.1-0.3) 10^3/uL Baso # (Auto) 0.1 (0.0-0.1) 10^3/uL Sodium (136-145) mmol/L Potassium 3.7 (3.3-5.3) mmol/L Chloride (98-115) mmol/L Carbon Dioxide (21.0-32.0) mmol/L BUN (6-25) mg/dL Creatinine (0.51-1.17) mg/dL Est Cr Clr Drug Dosing mL/min Estimated GFR (MDRD) mL/min Glucose (70-110) mg/dL Calcium (8.7-10.3) mg/dL Total Bilirubin (0.2-1.0) mg/dL AST (15-37) U/L ALT (12-78) U/L Alkaline Phosphatase (46-116) IU/L Total Protein (6.4-8.2) g/dL Albumin (3.00-4.80) g/dL 12/14/16 Range/Units 07:10 WBC (5.0-10.0) 10^3/uL RBC (3.80-5.50) 10^6/uL Hgb (12.0-16.0) g/dL Hct (37.0-47.0) % MCV (82.0-92.0) fL MCH (27.0-31.0) pg MCHC (32.0-36.0) g/dL RDW (11.5-14.5) % Plt Count (150-300) 10^3/uL MPV (7.4-10.4) fL Neut % (Auto) (50.0-70.0) % Lymph % (Auto) (20.0-40.0) % [place] % (Auto) (2.0-8.0) % Eos % (Auto) (1.0-3.0) % Baso % (Auto) (0.0-1.0) % Neut # (Auto) (2.5-7.0) 10^3/uL Lymph # (Auto) (1.0-4.0) 10^3/uL [place] # (Auto) (0.1-0.8) 10^3/uL Eos # (Auto) (0.1-0.3) 10^3/uL Baso # (Auto) (0.0-0.1) 10^3/uL Sodium 142 (136-145) mmol/L Potassium 3.4 (3.3-5.3) mmol/L Chloride 106 (98-115) mmol/L Carbon Dioxide 28.8 (21.0-32.0) mmol/L BUN 13 (6-25) mg/dL Creatinine 0.53 (0.51-1.17) mg/dL Est Cr Clr Drug Dosing 62.15 mL/min Estimated GFR (MDRD) > 60 mL/min Glucose 97 (70-110) mg/dL Calcium 8.4 L (8.7-10.3) mg/dL Total Bilirubin 0.5 (0.2-1.0) mg/dL AST 20 (15-37) U/L ALT 14 (12-78) U/L Alkaline Phosphatase 37 L (46-116) IU/L Total Protein 5.7 L (6.4-8.2) g/dL Albumin 2.61 L (3.00-4.80) g/dL CHRISTINA Results - Last 24 hrs: Microbiology 12/13/16 09:25 Stool Occult Blood (CHRISTINA) - Final Stool / Feces Med Orders - Current: Current Medications Acetaminophen (Tylenol) 650 mg PO Q6H PRN PRN Reason: Pain Albuterol (Ventolin Hfa) 0 gm INH Q4H PRN PRN Reason: Shortness of Breath Albuterol/Ipratropium (Duoneb 3.0-0.5 Mg/3 Ml) 3 ml NEB Q4HRRT PRN PRN Reason: Shortness of Breath Bumetanide (Bumex) 1 mg PO BID@0800,1400 [facility] Last Admin: 12/14/16 08:17 Dose: 1 mg Fish Oil (Fish Oil) 1 gm PO BID [facility] Last Admin: 12/14/16 08:20 Dose: 1 gm Hydrocortisone (Proctozone-Hc 2.5% Crm) 0 gm TOP BID [facility] Last Admin: 12/14/16 08:17 Dose: 1 applic Levothyroxine Sodium (Synthroid) 100 mcg PO ACBRK [facility] Last Admin: 12/14/16 06:12 Dose: 100 mcg Loratadine (Claritin) 10 mg PO DAILY PRN PRN Reason: CONGESTION Multivitamins/Minerals (Centrum) 1 tab PO DAILY [facility] Last Admin: 12/14/16 08:20 Dose: 1 tab Multivitamins/Minerals (Ocuvite) 1 each PO DAILY [facility] Last Admin: 12/14/16 08:15 Dose: 1 each Carvedilol [Coreg] 3 .125 Mg Tab Patient Own 3.125 mg PO BID [facility] Last Admin: 12/14/16 08:20 Dose: 3.125 mg Glucosamine & Chondroitin Tab Patient's Own 1 each PO DAILY [facility] Last Admin: 12/14/16 08:16 Dose: 1 each Lisinopril [Prinivil ] 2.5 Mg Tab Patient Own 2.5 mg PO DAILY [facility] Last Admin: 12/14/16 08:21 Dose: 2.5 mg Rosuvastatin Calcium [Crestor] 5 Mg Tab Patient Own 5 mg PO BEDTIME [facility] Last Admin: 12/13/16 20:43 Dose: 5 mg Sertraline 100mg Tab (Patient Own) 1 each PO DAILY [facility] Last Admin: 12/14/16 08:22 Dose: 1 each Nystatin (Nystop) 0 gm TOP BID [facility] Last Admin: 12/14/16 08:15 Dose: 1 applic Patient Own Medication (Ptom) 1 each TOP DAILY PRN PRN Reason: Pain Potassium Chloride (Klor-Con M20) 40 meq PO DAILY@1800 [facility] Last Admin: 12/13/16 17:24 Dose: 40 meq Potassium Chloride (Klor-Con M20) 60 meq PO WITHBREAKFAST [facility] Last Admin: 12/14/16 08:19 Dose: 60 meq Pregabalin (Lyrica) 100 mg PO TID [facility] Last Admin: 12/14/16 08:21 Dose: 100 mg Senna/Docusate Sodium (Senna Plus) 1 tab PO DAILY PRN PRN Reason: Constipation Discontinued Medications Furosemide (Lasix) 20 mg IVPUSH NOW ONE Stop: 12/12/16 18:22 Last Admin: 12/13/16 13:45 Dose: Not Given Potassium Chloride (Klor-Con M20) 60 meq PO ONETIME ONE Stop: 12/13/16 14:06 Last Admin: 12/13/16 14:14 Dose: 60 meq - Exam General: Reports: Alert, Oriented, Cooperative, No Acute Distress Lungs: Reports: Normal Respiratory Effort, Rales (Bilateral bases, L>R.) Cardiovascular: Reports: Irregular Rhythm GI/Abdominal Exam: Normal Bowel Sounds *Q Meaningful Use (DIS) - VTE *Q VTE Criteria *Q: - Stroke *Q Stroke Criteria *Q: - AMI *Q AMI Criteria *Q:
== END 2016-12-14 10:43 | disposition home health service (06) ==
LOC: KA.ED 17:04 → KA.MS 18:37
PROVIDERS: ADMIT Physician Assistant Surgical; ATTEND Internal Medicine
DX: K92.2 Gastrointestinal hemorrhage, unspecified (principal); D64.9 Anemia, unspecified; I48.92 Unspecified atrial flutter; I50.9 Heart failure, unspecified; I10 Essential (primary) hypertension; Z88.1 Allergy status to other antibiotic agents; Z88.0 Allergy status to penicillin; Z88.8 Allergy status to other drugs, medicaments and biological substances; J30.81 Allergic rhinitis due to animal (cat) (dog) hair and dander; Z91.09 Other allergy status, other than to drugs and biological substances; Z79.01 Long term (current) use of anticoagulants; Z79.899 Other long term (current) drug therapy; J45.909 Unspecified asthma, uncomplicated; F32.9 Major depressive disorder, single episode, unspecified; E03.9 Hypothyroidism, unspecified; Z90.49 Acquired absence of other specified parts of digestive tract; Z90.710 Acquired absence of both cervix and uterus; Z98.51 Tubal ligation status; Z98.890 Other specified postprocedural states
CPT/HCPCS: 36415; 36430; 80048; 80053; 81001; 82272; 84132; 85018; 85025; 85610; 85730; 86850; 86900; 86901; 86920; 86922; 99284; A9270; J1940; P9016; 99220; G0378

== ENCOUNTER 2017-05-30 09:44 | Inpatient (IN) | payer MEDICARE, BC ==
[2017-05-30 10:44] LABS: CHLORIDE,CL 105 mmol/L (98-115); SODIUM,NA 143 mmol/L (136-145)
--- NOTE | 2017-05-30 10:45 | EDM.PDOC ---
ED HPI GENERAL MEDICAL PROBLEM - General Chief Complaint: General Time Seen by Provider: 05/30/17 10:25 Source of Information: Reports: Patient, Family (daughter) History Limitations: Reports: No Limitations - History of Present Illness INITIAL COMMENTS - FREE TEXT/NARRATIVE: Patient arrives via ambulance after spending the night on the floor beside her bed. She says she had slid to the floor and when she couldn't get up she pulled the covers off her bed and covered herself. She didn't hit her head and no neck pain but does have pain in the back of a hip and knee. She also has had a cough for two days and has tender, swollen glands in neck/throat. No dysuria. Her daughter tells me her mom has Life Alert bracelet but didn't want to bother anyone so didn't call until this morning. Right Hip Pain Score (Numeric/FACES): 8 - Related Data Allergies Allergy/AdvReac Type Severity Reaction Status Date / Time propoxyphene HCl Allergy Unknown Rash Verified 05/30/17 09:51 [From Darvon] cat dander Allergy Cannot Verified 05/30/17 09:51 Remember cephalexin [From Keflex] Allergy Stomach Verified 05/30/17 09:51 Upset furosemide [From Lasix] Allergy Dizziness Verified 05/30/17 09:51 Penicillins Allergy Cannot Verified 05/30/17 09:51 Remember propoxyphene napsylate Allergy Rash Verified 05/30/17 09:51 [From Darvocet-N 100] acetaminophen AdvReac Mild Cannot Verified 05/30/17 09:51 [From Darvocet-N 100] Remember ENVIRONMENTAL Allergy Cannot Uncoded 11/19/16 17:32 Remember Home Meds: Home Meds Levothyroxine [Synthroid] 100 mcg PO ACBRK 04/29/13 [History] Multivitamin [Multi-Vitamin Daily] 1 each PO DAILY 04/29/13 [History] Bumetanide [Bumex] 1 mg PO BID@0800,1400 06/17/14 [History] Sertraline [Zoloft] 100 mg PO DAILY 02/14/15 [History] Gluc 2KCl/Chondr/Lavelle Hy/Hy Ac [Glucosamine & Chondroitin Cap] 1 each PO DAILY 02/02/16 [History] Rosuvastatin Calcium [Crestor] 5 mg PO BEDTIME 02/02/16 [History] Albuterol [IJD: Albuterol HFA] 2 puff INH Q4H PRN 10/30/16 [History] Lutein/Minerals/Vit A,C & E [Ocuvite] 1 tab PO DAILY 10/30/16 [History] Potassium Chloride [Klor-Con M20] 40 meq PO DAILY@1800 10/30/16 [History] Potassium Chloride [Klor-Con M20] 60 meq PO DAILY 10/30/16 [History] Pregabalin [Lyrica] 100 mg PO TID 10/30/16 [History] Acetaminophen [Tylenol] 650 mg PO Q6H PRN 11/19/16 [History] Albuterol/Ipratropium [DuoNeb 3.0-0.5 MG/3 ML] 3 ml NEB Q4HRRT PRN 11/19/16 [ History] Carvedilol [Coreg] 3.125 mg PO BID 11/19/16 [History] Hydrocortisone [Anusol-HC] 1 applic RECTAL BID 11/19/16 [History] Lisinopril [Prinivil] 2.5 mg PO DAILY 11/19/16 [History] Loratadine [Claritin] 10 mg PO DAILY PRN 11/19/16 [History] Methyl Salicylate/Menthol [Cool Heat] 35 gm TP DAILY PRN 11/19/16 [History] Nystatin 15 gm TP BID 11/19/16 [History] Sennosides/Docusate Sodium [Senna-Docusate Sodium] 1 tab PO DAILY PRN 11/19/16 [ History] Hydrocortisone Acetate [Anusol-Hc] 25 mg RC DAILY PRN 12/13/16 [History] Past Medical History HEENT History: Reports: Cataract, Impaired Vision Cardiovascular History: Reports: Afib, Arrhythmia, Blood Clots/VTE/DVT, Hypertension, MD, Stents Other Cardiovascular History: recent stents placed before admission Respiratory History: Reports: Asthma, Intubation, Previous Gastrointestinal History: Reports: Hemorrhoids Genitourinary History: Reports: None [employer] History: Reports: Musculoskeletal History: Reports: Arthritis Other Musculoskeletal History: arthropathy of lumbar facet joint,spinal stenosis of lumbar region,discogenic low back pain,DJD Neurological History: Reports: Neuropathy, Peripheral Other Neuro History: PVD Psychiatric History: Reports: Depression Endocrine/Metabolic History: Reports: Hypothyroidism Hematologic History: Reports: Blood Transfusion(s), Other (See Below) Other Hematologic History: Has been on coumadin and bruises easily. Dermatologic History: Reports: Eczema - Infectious Disease History Infectious Disease History: Reports: Chicken Pox, Influenza, Measles, Mumps, Rubella - Past Surgical History Head Surgeries/Procedures: Reports: None HEENT Surgical History: Reports: Cataract Surgery Cardiovascular Surgical History: Reports: Coronary Artery Stent GI Surgical History: Reports: Cholecystectomy, Colonoscopy, EGD Female Surgical History: Reports: Hysterectomy, Salpingo-Oophorectomy, Tubal Ligation Musculoskeletal Surgical History: Reports: Other (See Below) Other Musculoskeletal Surgeries/Procedures:: Left ankle surgery Dermatological Surgical History: Reports: None Social & Family History - Family History Family Medical History: Noncontributory - Tobacco Use Smoking Status *Q: Never Smoker Used Tobacco, but Quit: No Second Hand Smoke Exposure: No - Caffeine Use Caffeine Use: Reports: Coffee, Soda, Tea - Alcohol Use Days Per Week of Alcohol Use: 1 Number of Drinks Per Day: 2 Total Drinks Per Week: 2 - Recreational Drug Use Recreational Drug Use: No ED ROS GENERAL - Review of Systems Review Of Systems: See Below Constitutional: Reports: Fever, Weakness HEENT: Denies: Ear Pain, Throat Pain, Vision Change Respiratory: Reports: Cough, Sputum. Denies: Shortness of Breath Cardiovascular: Denies: Chest Pain, Lightheadedness, Syncope GI/Abdominal: Denies: Abdominal Pain, Diarrhea, Vomiting : Denies: Dysuria, Flank Pain Musculoskeletal: Reports: Leg Pain (left knee and hip/pelvis). Denies: Neck Pain, Shoulder Pain, Arm Pain Skin: Denies: Cyanosis, Jaundice, Mottled, Pallor, Diaphoresis Neurological: Reports: Difficulty Walking. Denies: Confusion, Dizziness, Seizure, Syncope, Trouble Speaking ED EXAM, GENERAL - Physical Exam Exam: See Below Exam Limited By: No Limitations General Appearance: Alert, WD/WN, No Apparent Distress Eye Exam: Bilateral Eye: EOMI, Normal Inspection, PERRL Ears: Normal External Exam, Hearing Grossly Normal Nose: Normal Inspection, Normal Mucosa, No Blood Throat/Mouth: Normal Lips, Normal Voice, No Airway Compromise Head: Atraumatic, Normocephalic Neck: Normal Inspection, Supple, Non-Tender, Full Range of Motion Respiratory/Chest: No Respiratory Distress, Crackles (left lung base). No: Rhonchi, Wheezing, Stridor Cardiovascular: Regular Rate, Rhythm, No Murmur GI/Abdominal: Normal Bowel Sounds, Soft, Non-Tender, No Organomegaly, No Distention Back Exam: No: CVA Tenderness (L), CVA Tenderness (R) Extremities: Normal Range of Motion Neurological: Alert, Oriented, Normal Cognition, No Motor/Sensory Deficits Psychiatric: Normal Affect, Normal Mood Skin Exam: Warm, Dry, Intact, Normal Color, No Rash Course - Vital Signs Last Recorded V/S: Last Vital Signs Temp 99.8 F 05/30/17 09:51 Pulse 88 05/30/17 09:51 Resp 16 05/30/17 09:51 BP 144/60 H 05/30/17 09:51 Pulse Ox 92 L 05/30/17 09:51 - Orders/Labs/Meds Orders: Active Orders 24 hr Category Date Time Status Patient Status [ADT] Routine ADT 05/30/17 13:12 Ordered Chest 2V [CR] Stat Exams 05/30/17 Taken Knee 3V Lt [CR] Stat Exams 05/30/17 10:01 Taken Pelvis 1V or 2V [CR] Stat Exams 05/30/17 10:01 Ordered CULTURE BLOOD [BC] Stat Lab 05/30/17 13:00 Ordered CULTURE BLOOD [BC] Stat Lab 05/30/17 13:00 Ordered Levofloxacin/Dextrose 5%-Water [Levaquin in D5W 500 MG/ Med 05/30/17 13:11 Ordered 100 ML] 500 mg Premix Bag 1 bag IV ONETIME Blood Culture x2 Reflex Set [OM.PC] Stat Oth 05/30/17 13:00 Ordered Medication Orders Levofloxacin/Dextrose 500 mg/ (Premix) 100 mls @ 100 mls/hr IV ONETIME ONE Stop: 05/30/17 14:10 Labs: Laboratory Tests 05/30/17 05/30/17 05/30/17 Range/Units 10:10 10:10 10:10 WBC 16.5 H (5.0-10.0) 10^3/uL RBC 4.83 (3.80-5.50) 10^6/uL Hgb 15.0 (12.0-16.0) g/dL Hct 48.3 H (37.0-47.0) % MCV 99.9 H (82.0-92.0) fL MCH 31.1 H (27.0-31.0) pg MCHC 31.1 L (32.0-36.0) g/dL RDW 15.0 H (11.5-14.5) % Plt Count 222 (150-300) 10^3/uL MPV 7.0 L (7.4-10.4) fL Neut % (Auto) 86.4 H (50.0-70.0) % Lymph % (Auto) 8.3 L (20.0-40.0) % [place] % (Auto) 4.7 (2.0-8.0) % Eos % (Auto) 0.0 L (1.0-3.0) % Baso % (Auto) 0.6 (0.0-1.0) % Neut # (Auto) 14.2 H (2.5-7.0) 10^3/uL Lymph # (Auto) 1.4 (1.0-4.0) 10^3/uL [place] # (Auto) 0.8 (0.1-0.8) 10^3/uL Eos # (Auto) 0.0 L (0.1-0.3) 10^3/uL Baso # (Auto) 0.1 (0.0-0.1) 10^3/uL Sodium 143 (136-145) mmol/L Potassium 4.7 (3.3-5.3) mmol/L Chloride 105 (98-115) mmol/L Carbon Dioxide 28.6 (21.0-32.0) mmol/L BUN 25 (6-25) mg/dL Creatinine 0.67 (0.51-1.17) mg/dL Est Cr Clr Drug Dosing 50.32 mL/min Estimated GFR (MDRD) > 60 mL/min Glucose 128 H (70-110) mg/dL Calcium 9.8 (8.7-10.3) mg/dL Total Bilirubin 0.9 (0.2-1.0) mg/dL AST 23 (15-37) U/L ALT 19 (12-78) U/L Alkaline Phosphatase 55 (46-116) IU/L B-Natriuretic Peptide (0-100) pg/mL Total Protein 8.1 (6.4-8.2) g/dL Albumin 3.76 (3.00-4.80) g/dL Specimen Type Urinvoid Urine Color Yellow (YELLOW) Urine Appearance Clear (CLEAR) Urine pH 7.0 (5.0-9.0) Ur Specific [place] 1.015 (1.005-1.030) Urine Protein Negative (NEGATIVE) mg/dL Urine Glucose (UA) Negative (NEGATIVE) mg/dL Urine Ketones Negative (NEGATIVE) mg/dL Urine Occult Blood Negative (NEGATIVE) Urine Nitrite Negative (NEGATIVE) Urine Bilirubin Negative (NEGATIVE) Urine Urobilinogen 0.2 (0.2-1.0) E.U./dL Ur Leukocyte Esterase Negative (NEGATIVE) Urine RBC 0-5 /HPF Urine WBC 0-5 /HPF Ur Epithelial Cells Few /LPF Urine Bacteria Occasional (NONE TO FEW) /HPF Urine Mucus Few H (NEGATIVE) /LPF 05/30/17 Range/Units 10:10 WBC (5.0-10.0) 10^3/uL RBC (3.80-5.50) 10^6/uL Hgb (12.0-16.0) g/dL Hct (37.0-47.0) % MCV (82.0-92.0) fL MCH (27.0-31.0) pg MCHC (32.0-36.0) g/dL RDW (11.5-14.5) % Plt Count (150-300) 10^3/uL MPV (7.4-10.4) fL Neut % (Auto) (50.0-70.0) % Lymph % (Auto) (20.0-40.0) % [place] % (Auto) (2.0-8.0) % Eos % (Auto) (1.0-3.0) % Baso % (Auto) (0.0-1.0) % Neut # (Auto) (2.5-7.0) 10^3/uL Lymph # (Auto) (1.0-4.0) 10^3/uL [place] # (Auto) (0.1-0.8) 10^3/uL Eos # (Auto) (0.1-0.3) 10^3/uL Baso # (Auto) (0.0-0.1) 10^3/uL Sodium (136-145) mmol/L Potassium (3.3-5.3) mmol/L Chloride (98-115) mmol/L Carbon Dioxide (21.0-32.0) mmol/L BUN (6-25) mg/dL Creatinine (0.51-1.17) mg/dL Est Cr Clr Drug Dosing mL/min Estimated GFR (MDRD) mL/min Glucose (70-110) mg/dL Calcium (8.7-10.3) mg/dL Total Bilirubin (0.2-1.0) mg/dL AST (15-37) U/L ALT (12-78) U/L Alkaline Phosphatase (46-116) IU/L B-Natriuretic Peptide 1010 H (0-100) pg/mL Total Protein (6.4-8.2) g/dL Albumin (3.00-4.80) g/dL Specimen Type Urine Color (YELLOW) Urine Appearance (CLEAR) Urine pH (5.0-9.0) Ur Specific [place] (1.005-1.030) Urine Protein (NEGATIVE) mg/dL Urine Glucose (UA) (NEGATIVE) mg/dL Urine Ketones (NEGATIVE) mg/dL Urine Occult Blood (NEGATIVE) Urine Nitrite (NEGATIVE) Urine Bilirubin (NEGATIVE) Urine Urobilinogen (0.2-1.0) E.U./dL Ur Leukocyte Esterase (NEGATIVE) Urine RBC /HPF Urine WBC /HPF Ur Epithelial Cells /LPF Urine Bacteria (NONE TO FEW) /HPF Urine Mucus (NEGATIVE) /LPF Meds: Medications Generic Name Dose Route Start Last Admin Trade Name Tiki PRN Reason Stop Dose Admin Levofloxacin/Dextrose 500 mg/ 100 mls @ 100 mls/hr 05/30/17 13:11 Premix IV 05/30/17 14:10 ONETIME ONE - Re-Assessments/Exams Free Text/Narrative Re-Assessment/Exam: 05/30/17 13:16 CXR shows moderate right perihilar infiltrates. I auscultated crackles on left lung also. WBC is 16.5 with left shift. Discussed findings with pt and daughter and will plan to admit for treatment. Discussed with CHAYITO An who accepted for admission. Patient remained stable throughout ER course. Departure - Departure Time of Disposition: 13:15 Disposition: Admitted As Inpatient 64 Condition: Good Clinical Impression: CAP (community acquired pneumonia) Qualifiers: Laterality: right Lung location: middle lobe of lung Qualified Code(s): J18.1 - Lobar pneumonia, unspecified organism - Discharge Information Referrals: Sylvia Clayton MD [Primary Care Provider] - Forms: ED Department Discharge - My Orders Last 24 Hours: My Active Orders 05/30/17 Chest 2V [CR] Stat 05/30/17 10:01 Knee 3V Lt [CR] Stat Pelvis 1V or 2V [CR] Stat 05/30/17 13:00 CULTURE BLOOD [BC] Stat CULTURE BLOOD [BC] Stat Blood Culture x2 Reflex Set [OM.PC] Stat 05/30/17 13:11 Levofloxacin/Dextrose 5%-Water [Levaquin in D5W 500 MG/100 ML] 500 mg Premix Bag 1 bag IV ONETIME 05/30/17 13:12 Patient Status [ADT] Routine - Assessment/Plan Last 24 Hours: My Active Orders 05/30/17 Chest 2V [CR] Stat 05/30/17 10:01 Knee 3V Lt [CR] Stat Pelvis 1V or 2V [CR] Stat 05/30/17 13:00 CULTURE BLOOD [BC] Stat CULTURE BLOOD [BC] Stat Blood Culture x2 Reflex Set [OM.PC] Stat 05/30/17 13:11 Levofloxacin/Dextrose 5%-Water [Levaquin in D5W 500 MG/100 ML] 500 mg Premix Bag 1 bag IV ONETIME 05/30/17 13:12 Patient Status [ADT] Routine
[2017-05-30] MEDS ORDERED: Levofloxacin/Dextrose 5%-Water 500 MG in Premix Bag 1 BAG IV ONE (13:11)
[2017-05-30] MEDS ORDERED: Loratadine 10 MG Tab PO PRN (17:50)
[2017-05-30] MEDS ORDERED: Albuterol HFA 18 Gm Inhaler INH PRN (17:50)
[2017-05-30] MEDS ORDERED: Albuterol/Ipratropium 3.0-0.5 MG/3 ML Neb Soln NEB PRN (17:50)
[2017-05-30] MEDS: Warfarin 5 MG Tab PO SCH (20:12)
[2017-05-30] MEDS: Potassium Chloride 20 MEQ Tab.ER PO SCH (20:13)
[2017-05-30] MEDS: Carvedilol 6.25 MG Tab PO SCH (20:15)
[2017-05-30] MEDS: Rosuvastatin 10 MG Tab PO SCH (21:02)
[2017-05-30] MEDS: Pregabalin 25 MG Cap PO SCH (21:02)
[2017-05-30] MEDS: Pregabalin 100 MG Cap PO SCH (21:02)
[2017-05-31] MEDS: Acetaminophen 325 MG Tab PO PRN (06:11)
[2017-05-31] MEDS: Levothyroxine 100 MCG Tab PO SCH (06:25)
[2017-05-31 08:19] LABS: CHLORIDE,CL 105 mmol/L (98-115); SODIUM,NA 140 mmol/L (136-145)
[2017-05-31] MEDS: Clopidogrel 75 MG Tab PO SCH (08:39)
[2017-05-31] MEDS: Pregabalin 25 MG Cap PO SCH ×2 (08:40→20:49)
[2017-05-31] MEDS: Pantoprazole 40 MG Tab.CR PO SCH (08:41)
[2017-05-31] MEDS: Sertraline 50 MG Tab PO SCH (08:41)
[2017-05-31] MEDS: Bumetanide 1 MG Tab PO SCH ×2 (08:42→14:54)
[2017-05-31] MEDS: Carvedilol 6.25 MG Tab PO SCH ×2 (08:43→17:52)
[2017-05-31] MEDS: Lisinopril 5 MG Tab PO SCH (08:44)
[2017-05-31] MEDS: Pregabalin 100 MG Cap PO SCH ×2 (08:45→20:48)
[2017-05-31] MEDS: Potassium Chloride 20 MEQ Tab.ER PO SCH ×2 (08:46→17:51)
--- NOTE | 2017-05-31 09:15 | PCM.PN ---
- General Info Date of Service: 05/31/17 Admission Dx/Problem (Free Text): Pneumonia - Review of Systems Systems Review Comment:: Kortney is seen today on inpatient rounds. She was admitted through the ER on 04/06 after she had slid to the floor off her bed at home and was unable to get up. She notes that she was going to make an appointment to come to the clinic on 05/30/17 due to a productive cough, concerned she may have had bronchitis. She was a little more SOB. She states that the evening of 05/29/17 she was sitting on the edge of her bed trying to put on her pajamas and she sort of "slid out of bed and I couldn't get this fat body off the floor". She has life alert but did not feel she needed to press it as "I didn't fall or anything and I figured I could just call my daughter in the morning". She states the morning of 05/30/17 she did press the life alert button and the rip saw operator asked if she wanted anyone called and she said her daughter, who promptly came over to her home. In the ER she was noted on CXR to have a RLL infiltrate and a leukocytosis with a left shift. She was started on levofloxacin. She states she feels much better today and wants to go home. "My appetite is too good". - Patient Data Vitals - Most Recent: Last Vital Signs Temp 98.5 F 05/31/17 06:29 Pulse 73 05/31/17 08:43 Resp 18 05/31/17 06:29 BP 122/55 L 05/31/17 08:44 Pulse Ox 90 L 05/31/17 06:29 Weight - Most Recent: 188 lb 4.8 oz I&O - Last 24 Hours: Intake & Output 05/30/17 05/31/17 05/31/17 22:59 06:59 14:59 Intake Total 240 250 Output Total 700 500 Balance -460 -250 Lab Results Last 24 Hours: Laboratory Results - last 24 hr 05/30/17 05/31/17 05/31/17 Range/Units 17:30 07:05 07:05 WBC 8.6 (5.0-10.0) 10^3/uL RBC 3.99 (3.80-5.50) 10^6/uL Hgb 12.7 (12.0-16.0) g/dL Hct 39.9 (37.0-47.0) % MCV 100.0 H (82.0-92.0) fL MCH 31.8 H (27.0-31.0) pg MCHC 31.8 L (32.0-36.0) g/dL RDW 14.5 (11.5-14.5) % Plt Count 154 (150-300) 10^3/uL MPV 7.7 (7.4-10.4) fL Neut % (Auto) 54.3 (50.0-70.0) % Lymph % (Auto) 31.0 (20.0-40.0) % [place] % (Auto) 13.9 H (2.0-8.0) % Eos % (Auto) 0.7 L (1.0-3.0) % Baso % (Auto) 0.1 (0.0-1.0) % Neut # (Auto) 4.6 (2.5-7.0) 10^3/uL Lymph # (Auto) 2.7 (1.0-4.0) 10^3/uL [place] # (Auto) 1.2 H (0.1-0.8) 10^3/uL Eos # (Auto) 0.1 (0.1-0.3) 10^3/uL Baso # (Auto) 0.0 (0.0-0.1) 10^3/uL PT TNP INR 2.2 H (0.9-1.1) Sodium 140 (136-145) mmol/L Potassium 4.2 (3.3-5.3) mmol/L Chloride 105 (98-115) mmol/L Carbon Dioxide 29.0 (21.0-32.0) mmol/L BUN 27 H (6-25) mg/dL Creatinine 0.76 (0.51-1.17) mg/dL Est Cr Clr Drug Dosing 44.36 mL/min Estimated GFR (MDRD) > 60 mL/min Glucose 96 (70-110) mg/dL Calcium 9.2 (8.7-10.3) mg/dL Total Bilirubin 0.8 (0.2-1.0) mg/dL AST 25 (15-37) U/L ALT 18 (12-78) U/L Alkaline Phosphatase 40 L (46-116) IU/L Total Protein 6.5 (6.4-8.2) g/dL Albumin 3.02 (3.00-4.80) g/dL Med Orders - Current: Current Medications Acetaminophen (Tylenol) 650 mg PO Q6H PRN PRN Reason: Pain Last Admin: 05/31/17 06:11 Dose: 650 mg Albuterol (Ventolin Hfa) 0 gm INH Q4H PRN PRN Reason: Shortness of Breath Albuterol/Ipratropium (Duoneb 3.0-0.5 Mg/3 Ml) 3 ml NEB Q4HRRT PRN PRN Reason: Shortness of Breath Last Admin: 05/31/17 08:57 Dose: 3 ml Bumetanide (Bumex) 1 mg PO BID@0800,1400 COUNTS INCLUDE 234 BEDS AT THE [facility] Last Admin: 05/31/17 08:42 Dose: 1 mg Carvedilol (Coreg) 3.125 mg PO BIDMEALS COUNTS INCLUDE 234 BEDS AT THE [facility] Last Admin: 05/31/17 08:43 Dose: 3.125 mg Clopidogrel Bisulfate (Plavix) 75 mg PO DAILY COUNTS INCLUDE 234 BEDS AT THE [facility] Last Admin: 05/31/17 08:39 Dose: 75 mg Levofloxacin/Dextrose 500 mg/ (Premix) 100 mls @ 100 mls/hr IV Q24H COUNTS INCLUDE 234 BEDS AT THE [facility] Levothyroxine Sodium (Synthroid) 100 mcg PO ACBRK COUNTS INCLUDE 234 BEDS AT THE [facility] Last Admin: 05/31/17 06:25 Dose: 100 mcg Lisinopril (Prinivil) 2.5 mg PO DAILY COUNTS INCLUDE 234 BEDS AT THE [facility] Last Admin: 05/31/17 08:44 Dose: 2.5 mg Loratadine (Claritin) 10 mg PO DAILY PRN PRN Reason: Congestion Pantoprazole Sodium (Protonix) 40 mg PO ACBREAKFAST COUNTS INCLUDE 234 BEDS AT THE [facility] Last Admin: 05/31/17 08:41 Dose: 40 mg Potassium Chloride (Klor-Con M20) 40 meq PO DAILY@1800 COUNTS INCLUDE 234 BEDS AT THE [facility] Last Admin: 05/30/17 20:13 Dose: 40 meq Potassium Chloride (Klor-Con M20) 60 meq PO WITHBREAKFAST COUNTS INCLUDE 234 BEDS AT THE [facility] Last Admin: 05/31/17 08:46 Dose: 60 meq Pregabalin (Lyrica) 100 mg PO BID COUNTS INCLUDE 234 BEDS AT THE [facility] Last Admin: 05/31/17 08:45 Dose: 100 mg Pregabalin (Lyrica) 50 mg PO BID COUNTS INCLUDE 234 BEDS AT THE [facility] Last Admin: 05/31/17 08:40 Dose: 50 mg Rosuvastatin Calcium (Crestor) 5 mg PO BEDTIME COUNTS INCLUDE 234 BEDS AT THE [facility] Last Admin: 05/30/17 21:02 Dose: 5 mg Senna/Docusate Sodium (Senna Plus) 1 tab PO DAILY PRN PRN Reason: Constipation Sertraline HCl (Zoloft) 100 mg PO DAILY COUNTS INCLUDE 234 BEDS AT THE [facility] Last Admin: 05/31/17 08:41 Dose: 100 mg Warfarin Sodium (Coumadin) 7.5 mg PO SUMOTUTHFRSA@1800 COUNTS INCLUDE 234 BEDS AT THE [facility] Last Admin: 05/30/17 20:12 Dose: 7.5 mg Warfarin Sodium (Coumadin) 5 mg PO WE@1800 COUNTS INCLUDE 234 BEDS AT THE [facility] Discontinued Medications Levofloxacin/Dextrose 500 mg/ (Premix) 100 mls @ 100 mls/hr IV ONETIME ONE Stop: 05/30/17 14:10 Last Admin: 05/30/17 14:55 Dose: 100 mls/hr - Exam General: Alert, Oriented, Cooperative, No Acute Distress Lungs: Crackles (Bases bilaterally, worse on the R than the L.) Cardiovascular: Irregular Rhythm, Murmurs (2/6 systolic murmur) Extremities: Pedal Edema (Trace bilateral) - Problem List & Annotations (1) CAP (community acquired pneumonia) SNOMED Code(s): 829997389 Code(s): J18.9 - PNEUMONIA, UNSPECIFIED ORGANISM Status: Acute Current Visit: Yes Qualifiers: Laterality: right Lung location: middle lobe of lung Qualified Code(s): J18.1 - Lobar pneumonia, unspecified organism (2) Afib, Atrial fibrillation and flutter SNOMED Code(s): 037429276 Code(s): I48.91 - UNSPECIFIED ATRIAL FIBRILLATION; I48.92 - UNSPECIFIED ATRIAL FLUTTER Status: Acute Current Visit: No (3) Congestive heart failure SNOMED Code(s): 01813267 Code(s): I50.9 - HEART FAILURE, UNSPECIFIED Status: Acute Current Visit: No - Problem List Review Problem List Initiated/Reviewed/Updated: Yes - My Orders Last 24 Hours: My Active Orders 05/31/17 09:06 PT Evaluation and Treatment [CONS] Routine - Assessment Assessment:: RLL pneumonia. A-fib, chronic. CHF. Weakness. - Plan Plan:: RLL pneumonia. Continue levofloxacin. Leukocytosis resolved, left shift normalized. A-fib, chronic. Continue home meds. CHF. Continue home meds. Weakness. PT eval and treat. If stable, could possibly be discharged tomorrow (06/01/17). Otherwise may require swingbed.
[2017-05-31] MEDS ORDERED: Levofloxacin/Dextrose 5%-Water 500 MG in Premix Bag 1 BAG IV SCH (13:00)
[2017-05-31] MEDS: Warfarin 5 MG Tab PO SCH (17:50)
[2017-05-31] MEDS: Rosuvastatin 10 MG Tab PO SCH (20:48)
[2017-06-01] MEDS: Levothyroxine 100 MCG Tab PO SCH (06:12)
[2017-06-01] MEDS: Acetaminophen 325 MG Tab PO PRN (06:13)
[2017-06-01 06:20] VITALS: BP 114/61
[2017-06-01 07:51] LABS: CHLORIDE,CL 104 mmol/L (98-115); SODIUM,NA 142 mmol/L (136-145)
[2017-06-01] MEDS: Bumetanide 1 MG Tab PO SCH (08:01)
[2017-06-01] MEDS: Pantoprazole 40 MG Tab.CR PO SCH (08:01)
[2017-06-01] MEDS: Carvedilol 6.25 MG Tab PO SCH (08:02)
[2017-06-01] MEDS: Potassium Chloride 20 MEQ Tab.ER PO SCH (08:03)
[2017-06-01] MEDS: Lisinopril 5 MG Tab PO SCH (08:06)
[2017-06-01] MEDS: Clopidogrel 75 MG Tab PO SCH (08:06)
[2017-06-01] MEDS: Sertraline 50 MG Tab PO SCH (08:06)
[2017-06-01] MEDS: Pregabalin 100 MG Cap PO SCH (08:11)
[2017-06-01] MEDS: Pregabalin 25 MG Cap PO SCH (08:11)
[2017-06-01] MEDS ORDERED: Levofloxacin/Dextrose 5%-Water 50 ML IV SCH (14:00)
--- NOTE | 2017-06-03 08:20 | DISCH ---
HISTORY OF PRESENT ILLNESS: This is an 81-year-old female who was admitted to the hospital on 03/30/2018. She was admitted with right-sided pneumonia and treated with Levaquin. Chest x-ray from the emergency room showed moderate right perihilar infiltrate. There were also some crackles on the left side. She had a WBC count of 16.5 with a left shift. The white blood cell count has now normalized. The patient is feeling better and looking better clinically. Prior to her admission also, she had a significant amount of weakness. She slid out of her bed and she could not get herself off the floor. She did have a physical therapy evaluation performed. She does have a history of atrial fibrillation which is chronic. She also has a history of coronary artery disease and is status post stenting and is on clopidogrel. She has some congestive heart failure with an admission BNP of 1010. LABORATORY DATA: Significant lab data from today shows a normal white count of 7.1. Hemoglobin, hematocrit, and platelets are normal as well. Panel showed a mildly elevated BUN of 33. Creatinine is normal at 0.78 and GFR is greater than 60. PHYSICAL EXAMINATION: VITAL SIGNS: Temp is 97.6, pulse 75, respirations 22, blood pressure 114/61, O2 saturation is 93% on room air. SKIN: Warm and dry to touch. CARDIAC: Reveals S1, S2. Irregularly irregular rhythm with a 2/6 systolic murmur. LUNGS: Do have some bibasilar crackles, which have improved since admission. ABDOMEN: Soft, nontender. Bowel sounds present in all four quadrants. There is just a trace of pedal edema. IMPRESSION AND DISCHARGE DIAGNOSES: 1. Right lower lobe pneumonia, improved, clinically as well as normalized WBC count. She has been treated with Levaquin in the hospital and will continue on oral Levaquin 500 mg daily for seven additional days. 2. History of chronic atrial fibrillation, this is stable. She will continue home medications. 3. Congestive heart failure. Continue home medications. The only change in her medications on discharge is the addition of Levaquin for 7 days. 4. Need for home health care. She will be needing both physical and occupational therapy upon discharge via [facility] from [place]. My clinical findings to support the need for home health include. a. She does have a potential for rehospitalization related to possible falling from deconditioning. She does use a walker and is quite confident in her ability to use this. b. She will need health teaching for medication management as she is on multiple medications. c. She will need to develop a home therapy program. d. There is no need for diabetic education as she does not have a working diagnosis of diabetes. e. Pain and symptom control. Her pain level is quite low. f. She will need a home safety assessment and instruction in relation to this. g. She will need strength and endurance improvement with physical and occupational therapy. h. She will not need any wound care and assessment due to the fact that she does not have any open wounds at this time. i. She will need home management of multiple disease processes, i.e., recent right lower lobe pneumonia, coronary artery disease, atrial fibrillation, congestive heart failure, depression, hypercholesterolemia, hypokalemia, gastroesophageal reflux disease, hypertension, as well as hypothyroidism. 5. Support for homebound status. She is limited and does have decreased strength and endurance due to muscle weakness secondary to recent hospitalization for a right lower lobe pneumonia. She does experience some shortness of breath with minimal activities at rest. She does have an unsteady gait and uses a walker. She has two separate walkers at home, one larger and one smaller to get through designated doorways at home. She does have a risk for exacerbation of disease due to multiple disease states. She is not a high risk for infection, however, possibly high risk for exacerbation of congestive heart failure and possibly recurrent pneumonia. She is not bed bound or chair bound. /[id number]/MODL
[2017-06-05] MEDS ORDERED: Warfarin 5 MG Tab PO SCH (18:00)
== END 2017-06-01 12:10 | disposition home or self-care (01) | DRG 195 ==
LOC: KA.ED 09:44 → KA.MS 13:12
PROVIDERS: ADMIT Physician Assistant Surgical
DX: J18.1 Lobar pneumonia, unspecified organism (principal); I48.91 Unspecified atrial fibrillation; I48.2 Chronic atrial fibrillation; I25.2 Old myocardial infarction; R53.1 Weakness; G62.9 Polyneuropathy, unspecified; E03.9 Hypothyroidism, unspecified; F32.9 Major depressive disorder, single episode, unspecified; I25.10 Atherosclerotic heart disease of native coronary artery without angina pectoris; I50.9 Heart failure, unspecified; Z95.5 Presence of coronary angioplasty implant and graft; Z79.01 Long term (current) use of anticoagulants; Z88.8 Allergy status to other drugs, medicaments and biological substances; Z79.899 Other long term (current) drug therapy; Z86.718 Personal history of other venous thrombosis and embolism; I10 Essential (primary) hypertension
CPT/HCPCS: 36415; 36416; 71046; 72170; 73562-LT; 80048; 80053; 81001; 83880; 85025; 85610; 87040; 94640; 97161-GP; 99285; A9270-GY; J1956